=== PATIENT | female | born 1990 | race Caucasian/White ===

== ENCOUNTER 2017-01-07 08:37 | Emergency (ER) | payer OTHER ==
[~2017-01-07] VITALS: Ht 170.2 cm; Wt 85.2 kg
[2017-01-07 08:46] VITALS: TEMP 37.1; Ht 170.2 cm; Wt 85.2 kg
[2017-01-07 09:36] LABS: BASO % 0.5 %; BASO ABS # 0.05 K/uL (0-0.2); COMPLETE YES; HEMATOCRIT 35.8 % (37-47); IG% 0.4 %; LYMPH % 26.5 %; LYMPH ABS # 2.83 K/uL (1.2-3.4); MEAN CELL VOLUME 89.7 fL (80-100); MEAN CORPUSCULAR HEMOGLOBIN 31.8 pg (25-34); MEAN CORPUSCULAR HGB CONC 35.5 g/dl (32-36); MEAN PLATELET VOLUME 9.9 fL (7.4-10.4); MONO % 4.8 %; NEUT % 66.8 %; PLATELET COUNT 218 K/uL (130-400); RED BLOOD COUNT 3.99 M/uL (4.2-5.4); WHITE BLOOD COUNT 10.69 K/uL (4.8-10.8)
[2017-01-07 09:53] LABS: CREATININE 0.74 mg/dl (0.60-1.20); POTASSIUM 3.9 mmol/L (3.5-5.1)
--- NOTE | 2017-01-07 10:03 | DIAGNOSTIC IMAGING REPORT ---
RIGHT ELBOW MIN 3 VIEWS ROUTINE CLINICAL HISTORY: Right elbow pain following injury. COMPARISON: None FINDINGS: Positioning on this exam was difficult due to pain. Therefore, the AP exam is suboptimal. There is a right elbow joint effusion. Note is made of an 8 mm bone fragment projecting over the coronoid process of the ulna. There may be a few additional tiny adjacent fracture fragments. No additional fractures are identified on since exam. IMPRESSION: 1. 8 mm fracture fragment projecting over the anterior aspect the proximal right ulna. This favors an acute mildly displaced comminuted coronoid process fracture. Less likely, this could reflect a proximal radial fracture. 2. Right elbow joint effusion. Electronically signed by: Александр Fulton M.D. 01/07/2017 10:01 AM Dictated Date/Time: 01/07/2017 9:56 AM
--- NOTE | 2017-01-07 10:04 | DIAGNOSTIC IMAGING REPORT ---
RIGHT WRIST 2 VIEW CLINICAL HISTORY: Right wrist pain following trauma. COMPARISON: Right wrist radiographs October 10, 2015. FINDINGS: Positioning on this exam was difficult. Note is made of a markedly comminuted, moderately displaced fracture of the distal metaphysis of the right radius with intra-articular extension. There is dorsal tilt of the distal component. Carpal bones are suboptimally assessed on this exam but grossly intact. IMPRESSION: Moderately displaced, markedly comminuted distal right radial metaphyseal fracture with intra-articular extension consistent with a Colles' fracture. Electronically signed by: Александр Fulton M.D. 01/07/2017 10:03 AM Dictated Date/Time: 01/07/2017 10:01 AM
[2017-01-07] MEDS ORDERED: ONDANSETRON INJ 2 MG/ML 2 ML VIAL IV STA (10:43)
[2017-01-07] MEDS ORDERED: MoRPHine SULFATE 4 MG/ML 1 ML CARP\\VIAL IV STA (10:43)
[2017-01-07] MEDS ORDERED: BUPIVACAINE 0.5 % 5 MG/1 ML MPF 30ML VIAL INFIL ONE (10:45)
[2017-01-07] MEDS ORDERED: XYLOCAINE 1%/SOD BICARB 20 ML VIAL INFIL ONE (10:45)
[2017-01-07] MEDS ORDERED: OXYC-57 PO (11:04)
[2017-01-07] MEDS ORDERED: MoRPHine SULFATE 2 MG/ML CARP ONE (11:17)
--- NOTE | 2017-01-07 11:51 | DIAGNOSTIC IMAGING REPORT ---
RIGHT WRIST 2 VIEW CLINICAL HISTORY: Post reduction. COMPARISON: Right wrist radiographs January 07, 2017 at 9:41 AM. FINDINGS: Fine detail is diminished due to overlying cast. However, alignment of the distal right radial fracture is significantly improved since exam of January 07, 2017. No additional abnormalities are identified. IMPRESSION: Significant improvement in alignment of the distal right radial fracture status post reduction. Electronically signed by: Александр Fulton M.D. 01/07/2017 11:50 AM Dictated Date/Time: 01/07/2017 11:49 AM
[2017-01-07 12:12] VITALS: BP 115/50; PULSE 68; O2SAT 96
[2017-01-07] MEDS ORDERED: ONDANSETRON 4MG OD TAB ONE (12:19)
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
== END 2017-01-07 12:42 | disposition home or self-care (01) ==
LOC: C.EDB 08:40
DX: S52.531A Colles' fracture of right radius, initial encounter for closed fracture (principal); S52.041A Displaced fracture of coronoid process of right ulna, initial encounter for closed fracture; V86.59XA Driver of other special all-terrain or other off-road motor vehicle injured in nontraffic accident, initial encounter; Y92.89 Other specified places as the place of occurrence of the external cause; F41.9 Anxiety disorder, unspecified; J45.909 Unspecified asthma, uncomplicated

== ENCOUNTER 2017-01-09 12:52 | Emergency (ER) | payer OTHER ==
[~2017-01-09] VITALS: Ht 170.2 cm; Wt 87.7 kg
[~2017-01-09 12:52] MED LIST: OXYC-57 PO
[2017-01-09 13:03] VITALS: TEMP 36.9; Ht 170.2 cm; Wt 87.7 kg
[2017-01-09] MEDS ORDERED: MoRPHine SULFATE 10 MG/ML CARP/VIAL IM STA (13:37)
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
--- NOTE | 2017-01-09 14:43 | EMERGENCY ROOM VISIT NOTE ---
ED Visit Note First contact with patient: 13:18 CHIEF COMPLAINT: Arm pain HISTORY OF PRESENT ILLNESS: This 26-year-old female patient presents to the emergency department with her friend complaining of pain in the right wrist and elbow that has gotten worse today. Patient was seen here 2 days ago and found to have a fracture of the distal radius and ulna, as well as a small fracture in the elbow. She was seen by orthopedics and placed in a plaster splint. Patient states that her pain and swelling in her arm have gotten worse today, states "its excruciating, I can't take it anymore.". The patient rates their pain as throbbing and 8/10. The patient has taken Percocet for relief of the pain, last dose 2 tablets at 8 AM. The patient has not had previous fractures to this arm. The patient states she has a feeling of her fingers being asleep that has been present since her injury on Monday and has not gotten worse. The patient denies any other injuries. REVIEW OF SYSTEMS: A 6 system review of systems was completed with positives and pertinent negatives listed in the HPI. ALLERGIES: See chart MEDICATIONS: See chart PMH: See chart SOCIAL HISTORY: See chart PHYSICAL EXAM: Vital Signs: Reviewed Nurse's notes, vital signs stable. GENERAL : Pleasant and cooperative, slightly anxious but in no acute distress, well- developed, well-nourished. SKIN: The skin was without rashes, erythema, edema, warmth, or bruising. Capillary reflex less than 3 seconds. MUSCULOSKELETAL: The patient's right arm is in a sugar tong plaster splint. The fingers are moderately swollen but are pink, warm, with brisk cap refill, normal sensation. She is able to move her fingers but states this greatly increases her pain. The splint was loosened to further evaluate the arm, Radial pulse 2+. The anterior and posterior compartments are soft and nontender. NEURO: Patient was alert and oriented to person place and time. Normal sensation to light and sharp touch. EMERGENCY DEPARTMENT COURSE: I examined the patient. A repeat x-ray of the right forearm was reviewed myself and read by radiology and shows unchanged good alignment of the distal forearm fractures. I spoke on the phone with Dr. Morales, orthopedics, who recommended removal of splint to further evaluate the forearm. Pulses are intact, sensation is intact, brisk cap refill, and compartments are soft--I do not have any suspicion for compartment syndrome at this time. Patient had significant relief of pain with loosening of the splint , I suspect her increased pain was related to increased swelling of her forearm causing pressure within tight splint. The patient was placed in a new Ortho- Glass sugar tong splint under my direction and the position was satisfactory. She was given an arm sling for comfort. Neurovascular status was rechecked and intact. She was instructed to keep her ortho appointment tomorrow morning with Dr. Morales. The patient was discharged home in stable condition. Problem List Medical Problems: (1) Asthma, Unspecified Status: Chronic (2) Concussion W/O Coma Status: Resolved Current/Historical Medications Scheduled PRN Oxycodone/Acetaminophen 5MG/325MG (Percocet 5MG/325MG), 1-2 TABS PO Q4 PRN for Pain Allergies Coded Allergies: NUTS (Unverified Allergy, Severe, THROAT SWELLING, 01/09/17) BEE STING (Verified Allergy, Unknown, hives, 01/09/17) Vital Signs Date Time Temp Pulse Resp B/P (MAP) Pulse Ox O2 Delivery O2 Flow Rate FiO2 01/09/17 17:12 74 20 125/46 98 Room Air 01/09/17 15:12 61 14 97/38 96 Room Air 01/09/17 13:03 36.9 77 18 118/73 98 Room Air Medications Administered Medications (Trade) Dose Ordered Sig/Noah Route Start Time Stop Time Status Last Admin Dose Admin Morphine Sulfate (MoRPHine SULFATE INJ) 8 mg NOW STAT IM 01/09/17 13:37 01/09/17 13:40 DC 01/09/17 13:48 8 MG Oxycodone/ Acetaminophen (Percocet 5-325mg Tab) 2 tab NOW STAT PO 01/09/17 16:46 01/09/17 16:48 DC 01/09/17 16:51 2 TAB Departure Information Impression Primary Impression: Arm pain, right Additional Impression: Fracture of distal forearm Dispostion Home / Self-Care Condition GOOD Referrals No Doctor, Assigned (PCP) Patient Instructions ED Fx Upper Ext, My [facility] Additional Instructions You are scheduled to see Dr. Morales, orthopedics, at 10:15 AM. Please keep this appointment. Do not get the splint wet. Keep the splint in place and wear the sling for comfort. You may continue to take the Percocet as prescribed 1-2 tablets every 4-6 hours as needed for pain. Take this medication with food to help prevent stomach upset. This is a narcotic, you may not drive or drink alcohol while you're taking it. You may also take ibuprofen 600 mg every 6-8 hours as needed for pain. You may continue to apply ice over the cast to help with swelling. Keep the arm elevated as much as possible to help reduce swelling. Please return to the emergency department for severe pain that is not treated with medications, or if your fingers become numb, discolored, or cold. Problem Qualifiers Additional Impression: Fracture of distal forearm Encounter type: subsequent encounter Fracture type: closed Laterality: right Fracture healing: with routine healing Qualified Codes: S52.91XD - Unspecified fracture of right forearm, subsequent encounter for closed fracture with routine healing
[2017-01-09] MEDS ORDERED: OXYCODONE/ACETAMINOPHEN 5-325 TAB PO STA (16:46)
[2017-01-09 17:12] VITALS: BP 125/46; PULSE 74; O2SAT 98
== END 2017-01-09 17:14 | disposition home or self-care (01) ==
LOC: C.EDB 12:53 → C.EDD 17:14
DX: M79.601 Pain in right arm (principal); S52.91XD Unspecified fracture of right forearm, subsequent encounter for closed fracture with routine healing; X58.XXXD Exposure to other specified factors, subsequent encounter; J45.909 Unspecified asthma, uncomplicated

== ENCOUNTER 2018-01-08 22:19 | Emergency (ER) | payer OTHER ==
[~2018-01-08] VITALS: Ht 170.2 cm; Wt 90.4 kg
[2018-01-08 22:27] VITALS: TEMP 37; Ht 170.2 cm; Wt 90.4 kg
[2018-01-08 23:13] LABS: BASO % 0.6 %; BASO ABS # 0.05 K/uL (0-0.2); EOS % 2.8 %; EOS ABS # 0.25 K/uL (0-0.5); HEMATOCRIT 34.9 % (37-47); HEMOGLOBIN 11.8 g/dL (12.0-16.0); IG# 0.01 K/uL (0.00-0.02); LYMPH ABS # 2.79 K/uL (1.2-3.4); MEAN CELL VOLUME 90.2 fL (80-100); MEAN CORPUSCULAR HEMOGLOBIN 30.5 pg (25-34); MEAN CORPUSCULAR HGB CONC 33.8 g/dl (32-36); MEAN PLATELET VOLUME 10.2 fL (7.4-10.4); MONO % 7.4 %; MONO ABS # 0.67 K/uL (0.11-0.59); NEUT % 58.1 %; NEUT ABS # 5.24 K/uL (1.4-6.5); PLATELET COUNT 235 K/uL (130-400); RED CELL DISTRIBUTION WIDTH CV 12.4 % (11.5-14.5); RED CELL DISTRIBUTION WIDTH SD 40.6 fL (36.4-46.3); WHITE BLOOD COUNT 9.01 K/uL (4.8-10.8)
[2018-01-08 23:36] LABS: ALBUMIN 3.8 gm/dl (3.4-5.0); ALKALINE PHOSPHATASE 53 U/L (45-117); ALT/SGPT 23 U/L (12-78); AST/SGOT 13 U/L (15-37); BLOOD UREA NITROGEN 15 mg/dl (7-18); CALCIUM 8.6 mg/dl (8.5-10.1); CARBON DIOXIDE 24 mmol/L (21-32); CREATININE 0.96 mg/dl (0.60-1.20); GLUCOSE 92 mg/dl (70-99); LIPASE 140 U/L (73-393); POTASSIUM 3.8 mmol/L (3.5-5.1); SODIUM 140 mmol/L (136-145); TOTAL PROTEIN 7.1 gm/dl (6.4-8.2)
[2018-01-08] MEDS ORDERED: KETOROLAC TROMETHAMINE 30 MG/ML VIAL IV STA (23:49)
--- NOTE | 2018-01-09 00:07 | EMERGENCY ROOM VISIT NOTE ---
History Report prepared by Suha: Jessica Elkins Under the Supervision of: Dr. Dharmesh Cash M.D. First contact with patient: 22:41 Chief Complaint: ABDOMINAL PAIN Stated Complaint: STOMACH PAIN,CRAMPS History of Present Illness The patient is a 27 year old female who presents to the Emergency Room with complaints of worsening abdominal pain starting yesterday. The patient states that the pain feels like abdominal cramping that is worse than when she has her period, but notes that she doesn't have her period. She states that it is in her lower abdomen. The patient states that she still tried to work with the pain , but by this evening was doubled over from it. She notes that she had spotting this morning, but notes that she has never had this happen. The patient notes that a year ago she had an abnormal pap smear, but was fine when she went back for recheck. She states that they are still concerned for cervical cancer and have been following her closely. She notes that she is unsure if she could be because she had sex two weeks ago, but got her period the day after. The patient denies fever, chills, nausea, vomiting, anything making it better/ worse, vaginal discharge, pain with intercourse, burning with urination, hematuria, diarrhea, constipation, hematochezia, and any abdominal surgeries. Source of History: patient, parent Onset: yesterday Position: abdomen Quality: cramping Timing: worsening Associated Symptoms: No fevers, No chills, No nausea, No vomiting, No hematochezia, No diarrhea, No urinary symptoms Note: The patient complains of spotting. The patient denies anything making it better/ worse, vaginal discharge, pain with intercourse, constipation, and any abdominal surgeries. Review of Systems See HPI for pertinent positives & negatives. A total of 10 systems reviewed and were otherwise negative. Past Medical & Surgical Medical Problems: (1) Asthma, Unspecified (2) Concussion W/O Coma Surgical Problems: (1) History of surgery on arm Old medical records were reviewed. Nurse's notes were reviewed and I agree with. Family History No significant family history Social History Smoking Status: Current Every Day Smoker Alcohol Use: occasionally Drug Use: none Marital Status: single Housing Status: lives with family Occupation Status: employed Current/Historical Medications No Active Prescriptions or Reported Meds Allergies Coded Allergies: NUTS (Unverified Allergy, Severe, THROAT SWELLING, 8/21/18) BEE STING (Verified Allergy, Unknown, hives, 01/09/18) Physical Exam Vital Signs Date Time Temp Pulse Resp B/P (MAP) Pulse Ox O2 Delivery O2 Flow Rate FiO2 01/09/18 02:10 70 20 118/70 98 01/09/18 01:37 58 20 126/49 98 Room Air 01/08/18 23:56 55 20 132/75 98 Room Air 01/08/18 22:27 37.0 75 16 126/78 100 Room Air Physical Exam General: Non-ill appearing young female in no acute distress. HEENT: Normal cephalic atraumatic. Pupils are equal round and reactive to light. Extraocular movements are intact. Oropharynx is pink with moist mucous membranes. No swelling of the mouth lips or tongue. Neck: Supple with a midline trachea. No meningeal signs or stiffness, no JVD or bruits. No Stridor. Chest: Clear to auscultation bilaterally. No wheezes or rhonchi. No increased work of breathing. Heart: regular rate and rhythm. Abdomen: Mildly tender in the lower abdomen, mostly on the left. Soft, nondistended without rebound guarding or rigidity. Extremities: No cyanosis clubbing or edema. No calf tenderness or assymetry Spine/Back. Non tender to palpation. No CVA tenderness Skin: Good turgor without rashes. Neurologic exam: Cranial nerves two through 12 are intact. Motor and sensation are intact and symmetrical throughout. Medical Decision & Procedures ER Provider Diagnostic Interpretation: Radiology results as stated below per my review and radiologist interpretation: US PELVIC/ENDOVAG: The uterus is normal in size. The endometrium is normal in thickness measuring 6.7 mm. The ovaries are normal in size and in appearance with incidental nondominant follicles. Internal vascular flow is noted bilaterally. There is trace free fluid in the pelvic cul-de-sac which is non specific and may be considered physiologic in patients of this age group. Radiologist: Boby Hernández MD Study ready at 01:13 and initial results transmitted at 01:54. Laboratory Results 01/08/18 23:03 Red Blood Count 3.87, Mean Corpuscular Volume 90.2, Mean Corpuscular Hemoglobin 30.5, Mean Corpuscular Hemoglobin Concent 33.8, Mean Platelet Volume 10.2, Neutrophils (%) (Auto) 58.1, Lymphocytes (%) (Auto) 31.0, Monocytes (%) (Auto) 7.4, Eosinophils (%) (Auto) 2.8, Basophils (%) (Auto) 0.6, Neutrophils # (Auto) 5.24, Lymphocytes # (Auto) 2.79, Monocytes # (Auto) 0.67, Eosinophils # (Auto) 0.25, Basophils # (Auto) 0.05 01/08/18 23:03 Test 01/08/18 23:03 White Blood Count 9.01 K/uL (4.8-10.8) Red Blood Count 3.87 M/uL (4.2-5.4) Hemoglobin 11.8 g/dL (12.0-16.0) Hematocrit 34.9 % (37-47) Mean Corpuscular Volume 90.2 fL (80-100) Mean Corpuscular Hemoglobin 30.5 pg (25-34) Mean Corpuscular Hemoglobin Concent 33.8 g/dl (32-36) Platelet Count 235 K/uL (130-400) Mean Platelet Volume 10.2 fL (7.4-10.4) Neutrophils (%) (Auto) 58.1 % Lymphocytes (%) (Auto) 31.0 % Monocytes (%) (Auto) 7.4 % Eosinophils (%) (Auto) 2.8 % Basophils (%) (Auto) 0.6 % Neutrophils # (Auto) 5.24 K/uL (1.4-6.5) Lymphocytes # (Auto) 2.79 K/uL (1.2-3.4) Monocytes # (Auto) 0.67 K/uL (0.11-0.59) Eosinophils # (Auto) 0.25 K/uL (0-0.5) Basophils # (Auto) 0.05 K/uL (0-0.2) RDW Standard Deviation 40.6 fL (36.4-46.3) RDW Coefficient of Variation 12.4 % (11.5-14.5) Immature Granulocyte % (Auto) 0.1 % Immature Granulocyte # (Auto) 0.01 K/uL (0.00-0.02) Urine Color YELLOW Urine Appearance CLEAR (CLEAR) Urine pH 5.0 (4.5-7.5) Urine Specific [place] 1.026 (1.000-1.030) Urine Protein NEG (NEG) Urine Glucose (UA) NEG (NEG) Urine Ketones NEG (NEG) Urine Occult Blood NEG (NEG) Urine Nitrite NEG (NEG) Urine Bilirubin NEG (NEG) Urine Urobilinogen NEG (NEG) Urine Leukocyte Esterase TRACE (NEG) Urine WBC (Auto) 1-5 /hpf (0-5) Urine RBC (Auto) 0-4 /hpf (0-4) Urine Hyaline Casts (Auto) 1-5 /lpf (0-5) Urine Epithelial Cells (Auto) 10-20 /lpf (0-5) Urine Bacteria (Auto) NEG (NEG) Anion Gap 10.0 mmol/L (3-11) Est Creatinine Clear Calc Drug Dose 102.5 ml/min Estimated GFR () 94.6 Estimated GFR (Non- 81.6 BUN/Creatinine Ratio 15.3 (10-20) Calcium Level 8.6 mg/dl (8.5-10.1) Total Bilirubin 0.2 mg/dl (0.2-1) Direct Bilirubin < 0.1 mg/dl (0-0.2) Aspartate Amino Transf (AST/SGOT) 13 U/L (15-37) Alanine Aminotransferase (ALT/SGPT) 23 U/L (12-78) Alkaline Phosphatase 53 U/L (45-117) Total Protein 7.1 gm/dl (6.4-8.2) Albumin 3.8 gm/dl (3.4-5.0) Lipase 140 U/L (73-393) Human Chorionic Gonadotropin, Qual NEG (NEG) Laboratory studies as stated above per my review. Medications Administered Medications (Trade) Dose Ordered Sig/Noah Route Start Time Stop Time Status Last Admin Dose Admin Ketorolac Tromethamine (Toradol Inj) 30 mg NOW STAT IV 01/08/18 23:49 01/08/18 23:51 DC 01/08/18 23:55 30 MG ED Course 2241: Past medical records reviewed. The patient was evaluated in room B3B, and a complete history and physical examination were performed. 2345: I reevaluated the patient and she appears comfortable. I ordered a pelvic ultrasound and Toradol since the pain is mainly in the LLQ and she had some bleeding today. 2349: Ordered Toradol Inj 30 mg IV. 0036: I reevaluated the patient and she is currently at ultrasound. 0130: I reevaluated the patient and she is resting comfortably. 0203: Upon reevaluation, the patient is feeling better. I discussed the results and treatment plan with her. She verbalized agreement of the treatment plan. The patient was discharged home. Medical Decision Differential diagnoses include , ovarian cyst, UTI, infection, electrolyte or metabolic abnormality. This patient comes in as described above. she has had lower abdominal mostly on the left. she has had some abnormal vaginal bleeding today with a little spotting. She has had no vaginal discharge or any dyspareunia or anything to suggest a pelvic infection. She has had no fever. IV access established was given IV Toradol. She has no white count or fever to suggest infection. she has no significant electrolyte or metabolic abnormalities. She is nothing to suggest kidney or liver disease. Her urinalysis does not suggest a definite UTI. Her serum test was negative. She did have a pelvic ultrasound. The pelvic ultrasound was unremarkable she is feeling significantly better. At this point I do not think is diverticulitis or appendicitis it may be related to more of a gynecologic issue. She declines a pelvic exam and rather follow-up with her regular doctor think that thus is reasonable. at this point, I do not suspect PID. She will use ibuprofen for pain return if: increasing pain, worsening of symptoms, fever or chills, any problems or concerns. She is happy to plan to discharge to home. Medication Reconcilliation Current Medication List: was personally reviewed by me Blood Pressure Screening Patient's blood pressure: Normal blood pressure Blood pressure disposition: Did not require urgent referral Impression Primary Impression: LLQ abdominal pain Scribe Attestation The scribe's documentation has been prepared under my direction and personally reviewed by me in its entirety. I confirm that the note above accurately reflects all work, treatment, procedures, and medical decision making performed by me. Departure Information Dispostion Home / Self-Care Prescriptions No Active Prescriptions or Reported Meds Referrals No Doctor, Assigned (PCP) Forms HOME CARE DOCUMENTATION FORM, IMPORTANT VISIT INFORMATION Patient Instructions [facility] Additional Instructions Rest Use ibuprofen 400 mg every 6 hours, take with food Return if increasing pain or bleeding, worsening symptoms, fever or chills, any new problems or concerns Up with your doctor/soil and plant scientist this week for recheck. you may need further pelvic exam if your symptoms persist or worsen
[2018-01-09 02:10] VITALS: BP 118/70; PULSE 70; O2SAT 98
--- NOTE | 2018-01-09 06:48 | DIAGNOSTIC IMAGING REPORT ---
EXAMINATION: PELVIC ULTRASOUND (transabdominal and endovaginal scanning) CLINICAL HISTORY: Left-sided pelvic pain COMPARISON STUDY: None FINDINGS: The uterus measured 5.3 x 3.6 x 4.3 cm.. The endometrial stripe measured 7 mm. Incidental note is made of several nabothian gland cysts. The right ovary measured 44 x 21 x 31 mm.. The left ovary measured 35 x 26 x 25 mm.. There is no ultrasonographic evidence of ovarian torsion. It should be noted that ovarian torsion can be present with normal Doppler ultrasonographic findings. There is trace free fluid likely physiologic. IMPRESSION: Normal pelvic ultrasound Electronically signed by: Doyle Hills M.D. 01/09/2018 6:46 AM Dictated Date/Time: 01/09/2018 6:45 AM
== END 2018-01-09 02:11 | disposition home or self-care (01) ==
LOC: C.EDB 22:20
DX: R10.32 Left lower quadrant pain (principal); R10.9 Unspecified abdominal pain; J45.909 Unspecified asthma, uncomplicated; Z91.018 Allergy to other foods; Z91.030 Bee allergy status; F17.200 Nicotine dependence, unspecified, uncomplicated

== ENCOUNTER 2021-10-11 07:41 | Inpatient (IN) ==
[2021-10-11] MEDS ORDERED: OXYTOCIN 30 UNITS/500 ML BAG IV PRN ×2 (07:46→07:48)
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
[2021-10-11] MEDS: LACTATED RINGER'S 1,000 ML IV PRN ×3 (08:48→17:45)
[2021-10-11 09:11] LABS: Hematocrit (blood only) 29.4 % (37-47); Hemoglobin 9.4 g/dL (12.0-16.0); Mean Corpuscular Hemoglobin 26.9 pg (25-34); Mean Corpuscular Volume 84.2 fL (80-100); Mean Platelet Volume 10.6 fL (7.4-10.4); Platelet Count 225 K/uL (130-400); RDW Coefficient of Variation 14.2 % (11.5-14.5); RDW Standard Deviation 42.7 fL (36.4-46.3); Red Blood Count 3.49 M/uL (4.2-5.4); White Blood Count 8.83 K/uL (4.8-10.8)
[2021-10-11] MEDS ORDERED: SODIUM CHLORIDE 0.9% 250 ML IV PRN (12:48)
[2021-10-11] MEDS ORDERED: SODIUM CHLORIDE 0.9% INJ 10 ML VIAL ONE ×2 (13:41→22:29)
[2021-10-11] MEDS ORDERED: fentaNYL citrate 100 MCG/2 ML VIAL ONE ×3 (13:41→23:53)
[2021-10-11] MEDS ORDERED: ePHEDrine sulfate 50 MG/ML AMP ONE (13:41)
[2021-10-11] MEDS ORDERED: BUPIVACAINE 0.25% 30 ML VIAL ONE ×2 (13:41→22:29)
[2021-10-11] MEDS ORDERED: fentaNYL 2MCG/ML ROPIVACAINE 1.25MG/ML 100 ML BAG EPI ONE (13:42)
[2021-10-11] MEDS ORDERED: fentaNYL 2MCG/ML ROPIVACAINE 1.25MG/ML 100 ML BAG EPI PRN (14:14)
[2021-10-11] MEDS ORDERED: ePHEDrine sulfate 50 MG/ML AMP IV PRN (14:14)
[2021-10-11] MEDS ORDERED: NALOXONE HCL 1 MG in SODIUM CHLORIDE 0.9% 1000ML 1,000 ML IV PRN (14:14)
[2021-10-11] MEDS ORDERED: diphenhydrAMINE 50 MG/ML VIAL IV PRN (14:14)
[2021-10-11] MEDS ORDERED: NALOXONE HCL 0.4 MG/1 ML VIAL/CARP IV PRN (14:14)
[2021-10-11] MEDS ORDERED: NALBUPHINE HCL INJ 10 MG/ML AMP IV PRN (14:14)
[2021-10-11] MEDS ORDERED: ONDANSETRON INJ 2 MG/ML 2 ML VIAL IV PRN (14:14)
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
--- NOTE | 2021-10-11 16:23 | Labor Progress Brief Note ---
Date of Service October 11, 2021 Subjective Comfortable with epidural. Assessment & Plan (1) Encounter for induction of labor: Plan: IOL at 39w5d weeks with suspected LGA infant, despite passed GTT / non-diabetic. Discussion held in office regarding option for 1'CS given estimated weight that could be >5Kg with margin of error. Patient desired attempt at vaginal delivery. She reaffirmed that desire this morning in discussions with covering MD and resident prior to her Hammonds placement and initiation of pitocin. Has now progressed well with hammonds/Pitocin, has epidural, and agreeable to AROM which was performed without complication. Copious clear fluid released. Continue current management. Admission and Anticipated Discharge Date Admission Date: October 11, 2021 Physical Exam Genitourinary: /- AROM copious clear fluid FSE applied as fetus has been somewhat difficult to trace, especially after any maternal repositioning. [place] Q2-3 Pit @ 9 FHT Cat 1 [facility] & Data ([facility]) Vital Signs (Past 12 Hours) Vital Signs Temp Pulse Resp BP Pulse Ox 10/11/21 16:11 60 108/56 L 98 10/11/21 16:06 62 98 10/11/21 16:01 70 98 10/11/21 15:57 71 127/57 L 10/11/21 15:56 72 100 10/11/21 15:51 68 98 10/11/21 15:46 64 96 10/11/21 15:42 61 122/67 10/11/21 15:41 62 98 10/11/21 15:36 71 98 10/11/21 15:31 70 99 10/11/21 15:27 63 121/58 L 10/11/21 15:26 64 98 10/11/21 15:21 62 98 10/11/21 15:16 65 122/57 L 99 10/11/21 15:11 66 98 10/11/21 15:09 63 123/59 L 10/11/21 15:07 64 124/59 L 10/11/21 15:06 67 98 10/11/21 15:05 68 120/58 L 10/11/21 15:03 69 120/59 L 10/11/21 15:01 68 121/66 98 10/11/21 15:00 65 124/75 10/11/21 14:57 79 132/63 10/11/21 14:56 72 99 10/11/21 14:55 64 124/60 10/11/21 14:53 73 123/63 10/11/21 14:51 71 117/65 99 10/11/21 14:49 65 120/78 10/11/21 14:46 67 99 10/11/21 14:45 64 141/63 H 10/11/21 14:41 70 100 10/11/21 14:36 78 100 10/11/21 14:31 75 100 10/11/21 14:30 98.4 F 20 10/11/21 14:26 79 100 10/11/21 14:21 69 100 10/11/21 14:16 71 100 10/11/21 14:03 71 133/70 10/11/21 13:04 70 132/71 10/11/21 12:05 59 L 97/46 L 10/11/21 11:30 98.4 F 18 10/11/21 11:11 57 L 118/62 10/11/21 10:04 60 127/67 10/11/21 09:03 71 112/63 10/11/21 08:15 98.4 F 20 10/11/21 08:05 92 H 119/71 Coding Level of Care Code None Diagnoses Encounter for induction of labor Z34.90
[2021-10-11] MEDS ORDERED: NURSING L&D Epidural Breakthrough Pain Update ONE (18:44)
--- NOTE | 2021-10-11 19:02 | Labor Progress Brief Note ---
Date of Service October 11, 2021 Subjective Comfortable with epidural. Assessment & Plan (1) Encounter for induction of labor: Plan: Patient counseled by this MD specifically on weight, option of CSec vs continued IOL, and the lack of progress between exams. She is very anxious about and continues to want to induce labor and to try hard to avoid a . Discussed some of her fears and addressed them as best I can, and reviewed the shared decision-making that we will need to use over the coming hours in order to make good choices about her best route of delivery. Reviewed the use of IUPC, goal MVUs, the possibility that we will learn we can safely use more pitocin to create an adequate labor pattern, and the possibility we will learn that an objectively adequate trial of labor is not resulting in delivery, as well as the ways that these findings will need to be used to guide our decisions going forward for the best outcome. Patient and FOB's questions answered. At this time status is reassuring, fluid is clear, maternal vitals are stable, pain control is adequate, and there appears to be room to increase pitocin to titrate to goal MVU. Admission and Anticipated Discharge Date Admission Date: October 11, 2021 Physical Exam Genitourinary: Cervix unchanged, /-2 [place] was Q2, but more recently has changed to a dysfunctional pattern with coupleting and grouping of contractions followed by 5-6min breaks. Pit @ 11 T Cat 1 Patient and FOB counseled on IUPC use, risks and benefits, and consent to placement. This was performed without difficulty, being introduced at around 6- 7 o'clock position and meeting no resistance, tube filling with clear amniotic fluid upon placement. Initial MVU appeared to be ~40 per contraction. Goal 200-250mvu discussed in room. Results & Data ([facility]) Vital Signs (Past 12 Hours) Vital Signs Temp Pulse Resp BP Pulse Ox 10/11/21 18:51 74 98 10/11/21 18:46 66 98 10/11/21 18:42 62 132/65 10/11/21 18:41 66 98 10/11/21 18:36 67 100 10/11/21 18:31 73 20 99 10/11/21 18:27 74 125/71 10/11/21 18:26 69 99 10/11/21 18:21 65 99 10/11/21 18:16 65 18 100 10/11/21 18:11 63 112/55 L 98 10/11/21 18:06 63 98 10/11/21 18:04 18 10/11/21 18:01 72 99 10/11/21 17:56 69 130/70 98 10/11/21 17:51 66 98 10/11/21 17:48 18 10/11/21 17:46 68 99 10/11/21 17:44 98.6 F 10/11/21 17:42 69 141/77 H 10/11/21 17:41 69 99 10/11/21 17:36 75 99 10/11/21 17:32 18 10/11/21 17:31 68 98 10/11/21 17:27 65 132/75 10/11/21 17:26 67 98 10/11/21 17:21 65 98 10/11/21 17:16 63 18 98 10/11/21 17:12 62 125/63 10/11/21 17:11 65 98 10/11/21 17:06 69 99 10/11/21 17:02 20 10/11/21 17:01 62 99 10/11/21 16:58 71 108/91 10/11/21 16:56 64 99 10/11/21 16:51 65 98 10/11/21 16:46 64 18 99 10/11/21 16:43 56 L 105/54 L 10/11/21 16:41 62 98 10/11/21 16:36 62 99 10/11/21 16:31 58 L 18 98 10/11/21 16:26 62 105/54 L 98 10/11/21 16:21 60 98 10/11/21 16:16 62 20 98 10/11/21 16:11 60 108/56 L 98 10/11/21 16:06 62 98 10/11/21 16:01 70 20 98 05 15:57 71 127/57 L 10/11/21 15:56 72 100 10/11/21 15:51 68 98 10/11/21 15:46 64 18 96 05 15:42 61 122/67 05 15:41 62 98 05 15:36 71 98 05 15:31 70 18 99 10/11/21 15:27 63 121/58 L 10/11/21 15:26 64 98 10/11/21 15:21 62 98 10/11/21 15:16 65 20 122/57 L 99 10/11/21 15:11 66 98 10/11/21 15:09 63 123/59 L 10/11/21 15:07 64 124/59 L 10/11/21 15:06 67 98 10/11/21 15:05 68 120/58 L 10/11/21 15:03 69 120/59 L 10/11/21 15:02 18 10/11/21 15:01 68 121/66 98 10/11/21 15:00 65 124/75 10/11/21 14:57 79 132/63 10/11/21 14:56 72 99 10/11/21 14:55 64 124/60 10/11/21 14:53 73 123/63 10/11/21 14:52 18 10/11/21 14:51 71 117/65 99 10/11/21 14:49 65 120/78 10/11/21 14:46 67 99 10/11/21 14:45 64 141/63 H 10/11/21 14:41 70 100 10/11/21 14:36 78 100 10/11/21 14:31 75 100 10/11/21 14:30 98.4 F 20 10/11/21 14:26 79 100 10/11/21 14:21 69 100 10/11/21 14:16 71 100 10/11/21 14:03 71 133/70 10/11/21 13:04 70 132/71 10/11/21 12:05 59 L 97/46 L 10/11/21 11:30 98.4 F 18 10/11/21 11:11 57 L 118/62 10/11/21 10:04 60 127/67 10/11/21 09:03 71 112/63 10/11/21 08:15 98.4 F 20 10/11/21 08:05 92 H 119/71 Coding Level of Care Code None Diagnoses Encounter for induction of labor Z34.90
--- NOTE | 2021-10-11 21:16 | Labor Progress Brief Note ---
Date of Service October 11, 2021 Subjective Comfortable with epidural Assessment & Plan (1) Encounter for induction of labor: Plan: Discussion at bedside with RN Judy, patient, and FOB. She remains very anxious about possibly having a . Discussed options: keep pitocin at the typical 21 maximum since some change did occur despite inadequate MVU, increase the limit to a higher amount like 31 in an attempt to reach adequate MVU, or change plans to . Patient remains not interested in unless necessary. Has many questions again about pain management in , management of anxiety in the event of , the process of surgical delivery, all answered to her stated satisfaction. Discussed pros and cons of increasing pitocin dose, including higher chance of progress in labor, as well as higher chance of uterine atony, potentially fluid overload, and potentially prolonging the attempted IOL when the eventual result could still be CPD. She elects to stay at 21mu/min for another 2 hour interval and having another cervix reassessment, no further increases at this time. Admission and Anticipated Discharge Date Admission Date: October 11, 2021 Physical Exam Genitourinary: MVU not adequate, has not been reaching 200, and pit has been at 19. Cvx 6/75/-2 LOF clear continues FSE/IUPC in place and working well Coupling noted at times. Ctx otherwise ranging Q2-4min. Pit raised to 21mu/min while I am in room. Results & Data ([facility]) Vital Signs (Past 12 Hours) Vital Signs Temp Pulse Resp BP Pulse Ox 10/11/21 21:06 71 99 10/11/21 21:01 76 100 10/11/21 20:57 65 129/66 10/11/21 20:56 66 99 10/11/21 20:51 83 99 10/11/21 20:46 79 99 10/11/21 20:42 63 123/59 L 10/11/21 20:41 65 98 10/11/21 20:36 63 98 10/11/21 20:31 73 98 10/11/21 20:26 65 126/64 98 10/11/21 20:21 68 98 10/11/21 20:16 73 99 10/11/21 20:11 72 122/60 97 10/11/21 20:06 71 98 10/11/21 20:01 75 98 10/11/21 19:56 68 128/61 97 05 19:51 64 98 05 19:46 64 97 05 19:42 66 123/63 05 19:41 73 98 05 19:36 76 99 05 19:31 79 129/69 98 05 19:26 68 98 05 19:21 68 99 05 19:16 66 131/64 99 05 19:11 70 137/74 100 05 19:06 78 98 05 19:01 60 99 05 18:56 70 128/60 98 05 18:51 74 98 05 18:46 66 20 98 05 18:42 62 132/65 05 18:41 66 98 05 18:36 67 100 05 18:31 73 20 99 05 18:27 74 125/71 05 18:26 69 99 05 18:21 65 99 05 18:16 65 18 100 05 18:11 63 112/55 L 98 10/11/21 18:06 63 98 05 18:04 18 10/11/21 18:01 72 99 05 17:56 69 130/70 98 10/11/21 17:51 66 98 05 17:48 18 10/11/21 17:46 68 99 05 17:44 98.6 F 10/11/21 17:42 69 141/77 H 05 17:41 69 99 05 17:36 75 99 05 17:32 18 10/11/21 17:31 68 98 05 17:27 65 132/75 05 17:26 67 98 05 17:21 65 98 05 17:16 63 18 98 05 17:12 62 125/63 05 17:11 65 98 05 17:06 69 99 05 17:02 20 05 17:01 62 99 05 16:58 71 108/91 05 16:56 64 99 10/11/21 16:51 65 98 10/11/21 16:46 64 18 99 10/11/21 16:43 56 L 105/54 L 10/11/21 16:41 62 98 10/11/21 16:36 62 99 10/11/21 16:31 58 L 18 98 10/11/21 16:26 62 105/54 L 98 10/11/21 16:21 60 98 10/11/21 16:16 62 20 98 10/11/21 16:11 60 108/56 L 98 10/11/21 16:06 62 98 10/11/21 16:01 70 20 98 10/11/21 15:57 71 127/57 L 10/11/21 15:56 72 100 10/11/21 15:51 68 98 10/11/21 15:46 64 18 96 10/11/21 15:42 61 122/67 10/11/21 15:41 62 98 10/11/21 15:36 71 98 10/11/21 15:31 70 18 99 10/11/21 15:27 63 121/58 L 10/11/21 15:26 64 98 10/11/21 15:21 62 98 10/11/21 15:16 65 20 122/57 L 99 10/11/21 15:11 66 98 10/11/21 15:09 63 123/59 L 10/11/21 15:07 64 124/59 L 10/11/21 15:06 67 98 10/11/21 15:05 68 120/58 L 10/11/21 15:03 69 120/59 L 10/11/21 15:02 18 10/11/21 15:01 68 121/66 98 10/11/21 15:00 65 124/75 10/11/21 14:57 79 132/63 10/11/21 14:56 72 99 10/11/21 14:55 64 124/60 05 14:53 73 123/63 05 14:52 18 10/11/21 14:51 71 117/65 99 10/11/21 14:49 65 120/78 10/11/21 14:46 67 99 10/11/21 14:45 64 141/63 H 10/11/21 14:41 70 100 10/11/21 14:36 78 100 10/11/21 14:31 75 100 10/11/21 14:30 98.4 F 20 10/11/21 14:26 79 100 10/11/21 14:21 69 100 10/11/21 14:16 71 100 10/11/21 14:03 71 133/70 10/11/21 13:04 70 132/71 10/11/21 12:05 59 L 97/46 L 10/11/21 11:30 98.4 F 18 10/11/21 11:11 57 L 118/62 10/11/21 10:04 60 127/67 Coding Level of Care Code None Diagnoses Encounter for induction of labor Z34.90
[2021-10-11] MEDS ORDERED: LACTATED RINGER'S 1,000 ML IV SCH (23:15)
--- NOTE | 2021-10-11 23:15 | Labor Progress Brief Note ---
Date of Service October 11, 2021 Subjective Feeling more pelvic bone pain with contractions despite anesthesiologist giving additional medication Assessment & Plan (1) Encounter for induction of labor: Plan: Discussed no cervical change in the last 2 hour interval. MVU ranging from suboptimal to adequate, with coupling frequently seen. Labial edema, pelvic pain and dysfunctional contraction pattern all suggest - but do not diagnose - possible CPD, especially in light of ultrasound measurements. Pelvis feels average and is unproven. Patient is again counseled on options and at this time is ready to proceed to , which I do recommend. Impact of on future pregnancies including scar implantation and risks a/w reviewed. Consent process completed with line by line review of consent form, signed by patient and FOB. Admission and Anticipated Discharge Date Admission Date: October 11, 2021 Physical Exam Genitourinary: Cervix unchanged from prior exam. Fetus never came down below -2 station. FSE/IUPC in place, FHT Cat 1, [place] Q2-4, MVU 160-200 Pit @ 21 Fluid remains clear. Labial edema beginning to be notable. Results & Data ([facility]) Vital Signs (Past 12 Hours) Vital Signs Temp Pulse Resp BP Pulse Ox 10/11/21 23:06 82 98 10/11/21 23:01 87 99 10/11/21 22:56 79 130/54 L 99 10/11/21 22:51 71 99 10/11/21 22:46 65 98 10/11/21 22:42 63 126/62 10/11/21 22:41 66 126/65 98 10/11/21 22:39 77 124/63 10/11/21 22:37 65 117/60 10/11/21 22:36 64 99 10/11/21 22:33 67 120/58 L 10/11/21 22:31 66 98 10/11/21 22:27 65 115/55 L 10/11/21 22:26 69 98 10/11/21 22:21 73 99 10/11/21 22:16 66 99 10/11/21 22:11 79 110/59 L 99 10/11/21 22:06 65 99 10/11/21 22:01 80 99 10/11/21 21:56 73 140/59 L 100 10/11/21 21:51 71 99 10/11/21 21:46 72 98 05/23/22 21:42 69 114/56 L 0522 21:41 73 99 0522 21:36 75 99 0522 21:31 109 H 100 0522 21:27 77 129/59 L 0522 21:26 87 99 0522 21:21 66 99 0522 21:16 67 99 0522 21:14 65 110/54 L 0522 21:11 72 99 0522 21:06 71 99 0522 21:01 76 100 0522 20:57 65 129/66 0522 20:56 66 99 0522 20:51 83 99 0522 20:50 99.1 F 16 05 20:46 79 99 0522 20:42 63 123/59 L 05 20:41 65 98 0522 20:36 63 98 05 20:31 73 98 0522 20:26 65 126/64 98 0522 20:21 68 98 05 20:16 73 99 0522 20:11 72 122/60 97 05 20:06 71 98 05 20:01 75 98 05 19:56 68 128/61 97 0522 19:51 64 98 0522 19:46 64 97 0522 19:42 66 123/63 0522 19:41 73 98 0522 19:36 76 99 0522 19:31 79 129/69 98 05/22 19:26 68 98 0522 19:21 68 99 0522 19:16 66 131/64 99 0522 19:11 70 137/74 100 05 19:06 78 98 05 19:01 60 99 05/22 18:56 70 128/60 98 05/22 18:51 74 98 05/23/22 18:46 66 20 98 0523/22 18:42 62 132/65 0523/22 18:41 66 98 052322 18:36 67 100 05//22 18:31 73 20 99 10/11/21 18:27 74 125/71 10/11/21 18:26 69 99 10/11/21 18:21 65 99 10/11/21 18:16 65 18 100 10/11/21 18:11 63 112/55 L 98 10/11/21 18:06 63 98 10/11/21 18:04 18 10/11/21 18:01 72 99 10/11/21 17:56 69 130/70 98 10/11/21 17:51 66 98 10/11/21 17:48 18 10/11/21 17:46 68 99 10/11/21 17:44 98.6 F 10/11/21 17:42 69 141/77 H 10/11/21 17:41 69 99 10/11/21 17:36 75 99 10/11/21 17:32 18 10/11/21 17:31 68 98 10/11/21 17:27 65 132/75 10/11/21 17:26 67 98 10/11/21 17:21 65 98 10/11/21 17:16 63 18 98 10/11/21 17:12 62 125/63 10/11/21 17:11 65 98 10/11/21 17:06 69 99 10/11/21 17:02 20 10/11/21 17:01 62 99 10/11/21 16:58 71 108/91 10/11/21 16:56 64 99 10/11/21 16:51 65 98 10/11/21 16:46 64 18 99 10/11/21 16:43 56 L 105/54 L 10/11/21 16:41 62 98 10/11/21 16:36 62 99 10/11/21 16:31 58 L 18 98 10/11/21 16:26 62 105/54 L 98 10/11/21 16:21 60 98 10/11/21 16:16 62 20 98 10/11/21 16:11 60 108/56 L 98 10/11/21 16:06 62 98 10/11/21 16:01 70 20 98 10/11/21 15:57 71 127/57 L 10/11/21 15:56 72 100 10/11/21 15:51 68 98 10/11/21 15:46 64 18 96 0522 15:42 61 122/67 10/11/21 15:41 62 98 10/11/21 15:36 71 98 10/11/21 15:31 70 18 99 10/11/21 15:27 63 121/58 L 10/11/21 15:26 64 98 10/11/21 15:21 62 98 10/11/21 15:16 65 20 122/57 L 99 10/11/21 15:11 66 98 10/11/21 15:09 63 123/59 L 10/11/21 15:07 64 124/59 L 10/11/21 15:06 67 98 10/11/21 15:05 68 120/58 L 10/11/21 15:03 69 120/59 L 10/11/21 15:02 18 10/11/21 15:01 68 121/66 98 10/11/21 15:00 65 124/75 10/11/21 14:57 79 132/63 10/11/21 14:56 72 99 10/11/21 14:55 64 124/60 10/11/21 14:53 73 123/63 10/11/21 14:52 18 10/11/21 14:51 71 117/65 99 10/11/21 14:49 65 120/78 10/11/21 14:46 67 99 10/11/21 14:45 64 141/63 H 10/11/21 14:41 70 100 10/11/21 14:36 78 100 10/11/21 14:31 75 100 10/11/21 14:30 98.4 F 20 10/11/21 14:26 79 100 10/11/21 14:21 69 100 10/11/21 14:16 71 100 10/11/21 14:03 71 133/70 10/11/21 13:04 70 132/71 10/11/21 12:05 59 L 97/46 L 10/11/21 11:30 98.4 F 18 10/11/21 11:11 57 L 118/62 Coding Level of Care Code None Diagnoses Encounter for induction of labor Z34.90
[2021-10-11] MEDS ORDERED: CITRIC ACID/SODIUM CITRATE 15 ML UDC ONE (23:18)
[2021-10-11] MEDS ORDERED: CITRIC ACID/SODIUM CITRATE 15 ML UDC PO SCH (23:30)
[2021-10-11] MEDS ORDERED: LIDOCAINE 2%/EPINEPHRINE 1:200,000 20 ML SDV ONE (23:34)
[2021-10-11] MEDS ORDERED: OXYTOCIN 10 UNITS/ML 10ML VIAL ONE (23:34)
[2021-10-11] MEDS ORDERED: MIDAZOLAM HCL 1 MG/ML 2ML VIAL ONE (23:52)
[2021-10-12] MEDS ORDERED: SUCCINYLCHOLINE CHLORIDE 20 MG/ML 10 ML VIAL IV ONE (00:18)
[2021-10-12] MEDS ORDERED: ONDANSETRON INJ 2 MG/ML 2 ML VIAL ONE (00:18)
[2021-10-12] MEDS ORDERED: PROPOFOL IV EMULSION 10 MG/ML 20 ML VIAL IV ONE (00:18)
[2021-10-12] MEDS ORDERED: PHENYLEPHRINE 100MCG/ML 5ML SYR ONE (00:21)
[2021-10-12] MEDS ORDERED: MoRPHine SULFATE PF 1 MG/ML 10 ML AMP/VIAL ONE (00:22)
[2021-10-12] MEDS ORDERED: NALOXONE HCL 0.4 MG/1 ML VIAL/CARP IV PRN (00:26)
[2021-10-12] MEDS ORDERED: LACTATED RINGER'S 500 ML IV PRN (00:26)
[2021-10-12] MEDS ORDERED: KETOROLAC 30 MG/ML VIAL IV PRN ×2 (00:26→18:26)
[2021-10-12] MEDS ORDERED: MoRPHine SULFATE PF 1 MG/ML 10 ML AMP/VIAL INT SPINAL ONE (00:26)
[2021-10-12] MEDS ORDERED: NALOXONE HCL 1 MG in SODIUM CHLORIDE 0.9% 1000ML 1,000 ML IV PRN (00:26)
[2021-10-12] MEDS ORDERED: NALOXONE HCL 0.08 MG in SYRINGE 1.8 ML IV PRN (00:26)
[2021-10-12] MEDS ORDERED: ePHEDrine sulfate 50 MG/ML AMP IV PRN (00:26)
[2021-10-12] MEDS ORDERED: MEPERIDINE HCL 25 MG/ML CARP/VIAL IV PRN (00:26)
[2021-10-12] MEDS ORDERED: NALBUPHINE HCL INJ 10 MG/ML AMP IV PRN (00:26)
[2021-10-12] MEDS ORDERED: diphenhydrAMINE 50 MG/ML VIAL IV PRN ×2 (00:26→18:26)
[2021-10-12] MEDS ORDERED: SODIUM CHLORIDE 0.9% 1000ML 1,000 ML IV SCH (00:30)
[2021-10-12] MEDS ORDERED: NO NARCOTICS OR SEDATIVES SCH (00:30)
[2021-10-12] MEDS ORDERED: DC INTRASPINAL MORPHINE SCH (00:30)
--- NOTE | 2021-10-12 00:44 | Operative Report ---
PG Post Operative Report Pre & Post Diagnosis Operation Date: 10/11/21 23:30 Pre-Op Diagnosis: 1. Macrosomnia 2. Suspected cephalopelvic disproportion 3. Failure to progress in labor Post-Op Diagnosis: Same, with delivery of viable 9lb 10oz female child I identified the patient and participated in the time-out.: Yes Procedure Operation Date: 10/11/21 23:30 Actual Procedures Primary Low Transverse Section with Two-Layer uterine closure Surgeon Stephania Smith MD Operational Communication Chief Kan Correia RN Estimated Blood Loss 600 Findings Consistent with Post-Op Diagnosis Specimens Cord blood, Placenta for exam Anesthesia Type General Complications none Disposition Accompanied Patient To Recovery: Yes Disposition: L&D Description of Procedure The patient was placed operating table in the supine position with a leftward tilt. She was prepped and draped in standard sterile fashion. The anesthetic was tested and found to be adequate. A time-out was held, identifying correct patient, procedure, positioning and preoperative antibiotics. There were no concerns. A Pfannenstiel skin incision was made with a knife and taken down to the underlying layer of fascia. During this process, after opening only the skin and the first 1cm of subcutaneous fat tissue, the patient did complain of feeling sharp pain. She had severe anxiety pre-operatively, and had continued to express anxiety and have hyperventilation episodes during the preparation for surgery. Due to this anxiety as well as her complaints that she could feel pain once we announced that surgery had begun, the decision was made to convert to general endotracheal anesthesia. The FOB was escorted from the OR and the patient was induced and intubated. Dissection was then completed rapidly down to the fascia. The fascia was incised in the midline with the knife and taken out laterally with scissors. The fascia was bluntly tugged both superiorly and inferiorly. The muscles were bluntly in the midline. The peritoneum was entered bluntly. The incision was then stretched. An extra-large Rafael retractor was placed. The vesicouterine peritoneum was identified, entered with scissors and taken out laterally with scissors. The bladder flap was created digitally. A hysterotomy incision was created transversely in the lower uterine segment, final entry being accomplished in a blunt manner with the cover making machine operator's fingers. Clear amniotic fluid was encountered. The cover making machine operator's hand was used to elevate the head to the hysterotomy. The head was delivered using mild fundal pressure. As the head was quite large, a Kiwi was also applied with suction just into the "green zone" to help deliver the head. With additional fundal pressure and some rotation of the infant's body as it passed through the orifice of the Rafael, the shoulders and body followed. The cord was clamped and cut and the was then handed off to the awaiting mail carriers supervisor. Cord blood was obtained. The placenta was Manually extracted. The uterus was left in the abdomen and cleared of all clot and debris with moistened laparotomy sponges. The hysterotomy incision was repaired in two layers, the first in a running locked layer, the second in an imbricating layer. The ovaries and tubes were seen to be normal bilaterally. The gutters were cleared of clot and debris. A final inspection of the hysterotomy revealed good hemostasis. The rectus muscles were allowed to reapproximate naturally. The fascia was then reapproximated with 1 Vicryl in a running nonlocked manner. The fascia was examined and found to be free of defect following closure. The subcutaneous tissue was copiously irrigated and reapproximated with 0-chromic, then the skin edges were closed with 4-0 monocryl in a subcuticular fashion. A dermabond dressing was applied. The hammonds was found to be draining clear yellow urine at completion of the procedure. The patient was still able to be administered Duramorph via the existing epidural catheter, and thus is not expected to require a post-op narcotic [place]. I attest to the content of the Intraoperative Record and any orders documented therein. Any exceptions are noted below. I attest to the content of the Intraoperative Record and any orders documented therein. Any exceptions are noted below. OB Procedure Charges 32957
[2021-10-12] MEDS ORDERED: DIPHTHERIA/TETANUS/PERTUSSIS 0.5 ML SYR/VIAL IM ONE (01:00)
[2021-10-12] MEDS ORDERED: HYDROCORTISONE ACETATE 25 MG SUPP PR PRN (01:00)
[2021-10-12] MEDS ORDERED: BENZOCAINE 20% AER SPR 82.5 GM CAN EXT PRN (01:00)
[2021-10-12] MEDS ORDERED: MAGNESIUM HYDROXIDE SUSP 30 ML UDC PO PRN (01:00)
[2021-10-12] MEDS ORDERED: ONDANSETRON INJ 2 MG/ML 2 ML VIAL IV PRN (01:00)
[2021-10-12] MEDS ORDERED: OXYTOCIN 30 UNITS in LACTATED RINGER'S 1,000 ML IV SCH (01:00)
--- NOTE | 2021-10-12 06:51 | Anesthesiology Progress Note ---
Date of Service October 12, 2021 Anesthesia Post Procedure Vital Signs Vital Signs: Temp Pulse Pulse Resp BP BP Pulse Ox 10/12/21 05:05 99.0 F 76 18 100/78 97 10/12/21 04:05 99.0 F 72 18 104/77 98 10/12/21 03:35 99.3 F 84 18 105/69 98 10/12/21 03:05 98.8 F 74 18 106/66 96 10/12/21 03:03 78 119/56 L 10/12/21 03:02 78 96 10/12/21 03:01 72 93 10/12/21 03:00 98.8 F 18 97 10/12/21 02:57 71 96 10/12/21 02:52 73 105/52 L 98 10/12/21 02:51 73 84 L 10/12/21 02:47 75 96 10/12/21 02:42 72 132/57 L 97 10/12/21 02:37 77 98 10/12/21 02:32 69 119/56 L 98 10/12/21 02:27 71 99 10/12/21 02:24 98.8 F 16 99 10/12/21 02:22 71 98 10/12/21 02:21 80 118/56 L 10/12/21 02:17 69 98 10/12/21 02:15 98.8 F 18 97 10/12/21 02:12 72 98 10/12/21 02:11 74 130/59 L 10/12/21 02:07 80 96 10/12/21 02:02 81 98 10/12/21 02:01 79 124/57 L 10/12/21 01:57 75 98 10/12/21 01:52 73 96 10/12/21 01:51 77 121/56 L 10/12/21 01:41 63 117/58 L 10/12/21 01:31 88 108/54 L 10/12/21 01:21 96 H 98/53 L 10/12/21 01:12 75 107/54 L 10/12/21 01:01 85 89/44 L 10/12/21 00:58 94 H 112/53 L 10/12/21 00:50 96 H 81/46 L 10/12/21 00:49 90 78/39 L 10/12/21 00:48 97 H 74/38 L 05 00:47 97 H 72/33 L 0522 00:46 96 H 84/40 L 05 00:45 93 H 94 0522 23:21 106 H 99 0522 23:16 91 H 99 0522 23:13 90 117/59 L 0522 23:11 84 98 05 23:06 82 98 05 23:01 87 99 05 22:56 79 130/54 L 99 0522 22:51 71 99 0522 22:46 65 98 0522 22:42 63 126/62 0522 22:41 66 126/65 98 0522 22:39 77 124/63 0522 22:37 65 117/60 05 22:36 64 99 05 22:33 67 120/58 L 10/11/21 22:31 66 98 05 22:27 65 115/55 L 05 22:26 69 98 05 22:21 73 99 0522 22:16 66 99 0522 22:11 79 110/59 L 99 05 22:06 65 99 05 22:01 80 99 0522 21:56 73 140/59 L 100 0522 21:51 71 99 0522 21:46 72 98 0522 21:42 69 114/56 L 22 21:41 73 99 0522 21:36 75 99 052322 21:31 109 H 100 0522 21:27 77 129/59 L 052322 21:26 87 99 052322 21:21 66 99 052322 21:16 67 99 052322 21:14 65 110/54 L 0522 21:11 72 99 052322 21:06 71 99 052322 21:01 76 100 052322 20:57 65 129/66 052322 20:56 66 99 052322 20:51 83 99 05/23/22 20:50 99.1 F 16 05 20:46 79 99 0522 20:42 63 123/59 L 05 20:41 65 98 05 20:36 63 98 05 20:31 73 98 0522 20:26 65 126/64 98 05 20:21 68 98 05 20:16 73 99 05 20:11 72 122/60 97 05 20:06 71 98 05 20:01 75 98 05 19:56 68 128/61 97 05 19:51 64 98 05 19:46 64 97 05 19:42 66 123/63 05 19:41 73 98 05 19:36 76 99 05 19:31 79 129/69 98 05 19:26 68 98 05 19:21 68 99 05 19:16 66 131/64 99 05 19:11 70 137/74 100 05 19:06 78 98 05 19:01 60 99 05 18:56 70 128/60 98 05 18:51 74 98 05 18:46 66 20 98 05 18:42 62 132/65 05 18:41 66 98 05 18:36 67 100 05 18:31 73 20 99 05 18:27 74 125/71 05 18:26 69 99 05 18:21 65 99 05 18:16 65 18 100 05 18:11 63 112/55 L 98 05 18:06 63 98 05 18:04 18 10/11/21 18:01 72 99 05 17:56 69 130/70 98 05 17:51 66 98 05 17:48 18 05 17:46 68 99 05 17:44 98.6 F 05 17:42 69 141/77 H 05/22 17:41 69 99 10/11/21 17:36 75 99 10/11/21 17:32 18 10/11/21 17:31 68 98 10/11/21 17:27 65 132/75 10/11/21 17:26 67 98 10/11/21 17:21 65 98 10/11/21 17:16 63 18 98 10/11/21 17:12 62 125/63 10/11/21 17:11 65 98 10/11/21 17:06 69 99 10/11/21 17:02 20 10/11/21 17:01 62 99 10/11/21 16:58 71 108/91 10/11/21 16:56 64 99 10/11/21 16:51 65 98 10/11/21 16:46 64 18 99 10/11/21 16:43 56 L 105/54 L 10/11/21 16:41 62 98 10/11/21 16:36 62 99 10/11/21 16:31 58 L 18 98 10/11/21 16:26 62 105/54 L 98 10/11/21 16:21 60 98 10/11/21 16:16 62 20 98 10/11/21 16:11 60 108/56 L 98 10/11/21 16:06 62 98 10/11/21 16:01 70 20 98 10/11/21 15:57 71 127/57 L 10/11/21 15:56 72 100 10/11/21 15:51 68 98 10/11/21 15:46 64 18 96 10/11/21 15:42 61 122/67 10/11/21 15:41 62 98 10/11/21 15:36 71 98 10/11/21 15:31 70 18 99 10/11/21 15:27 63 121/58 L 10/11/21 15:26 64 98 10/11/21 15:21 62 98 10/11/21 15:16 65 20 122/57 L 99 10/11/21 15:11 66 98 10/11/21 15:09 63 123/59 L 10/11/21 15:07 64 124/59 L 10/11/21 15:06 67 98 10/11/21 15:05 68 120/58 L 10/11/21 15:03 69 120/59 L 10/11/21 15:02 18 10/11/21 15:01 68 121/66 98 10/11/21 15:00 65 124/75 10/11/21 14:57 79 132/63 10/11/21 14:56 72 99 10/11/21 14:55 64 124/60 10/11/21 14:53 73 123/63 10/11/21 14:52 18 10/11/21 14:51 71 117/65 99 10/11/21 14:49 65 120/78 10/11/21 14:46 67 99 10/11/21 14:45 64 141/63 H 10/11/21 14:41 70 100 10/11/21 14:36 78 100 10/11/21 14:31 75 100 10/11/21 14:30 98.4 F 20 10/11/21 14:26 79 100 10/11/21 14:21 69 100 10/11/21 14:16 71 100 10/11/21 14:03 71 133/70 10/11/21 13:04 70 132/71 10/11/21 12:05 59 L 97/46 L 10/11/21 11:30 98.4 F 18 10/11/21 11:11 57 L 118/62 10/11/21 10:04 60 127/67 10/11/21 09:03 71 112/63 10/11/21 08:15 98.4 F 20 10/11/21 08:05 92 H 119/71 Pain Intensity Abdomen: Pain Intensity: 4 Transfer of Care Handoff Completed per policy Notes Mental Status: alert / awake / arousable and participated in evaluation Patient Amnestic to Procedure: Yes Nausea / Vomiting: adequately controlled Pain: adequately controlled Airway Patency, RR, SpO2: stable & adequate BP & HR: stable & adequate Hydration State: stable & adequate Neuraxial Anesthesia: was administered and sensory block is resolving Anesthetic Complications: no major complications apparent and Pt Satisfied with anesthetic care
--- NOTE | 2021-10-12 06:51 | Anesthesia Procedure Note ---
Date of Service October 12, 2021 Anesthesia Post Epidural Note Vital Signs Vital Signs: Temp Pulse Resp BP Pulse Ox 99.0 F 76 18 100/78 97 10/12/21 05:05 10/12/21 05:05 10/12/21 05:05 10/12/21 05:05 10/12/21 05:05 Pain Intensity Abdomen: Pain Intensity: 4 Notes Mental Status: alert / awake / arousable and participated in evaluation Nausea / Vomiting: adequately controlled Pain: adequately controlled Airway Patency, RR, SpO2: stable & adequate BP & HR: stable & adequate Hydration State: stable & adequate Neuraxial Anesthesia: was administered and sensory block is resolving Anesthetic Complications: no major complications apparent and Pt Satisfied with anesthetic care Epidural: Removed without complications and With tip intact
--- NOTE | 2021-10-12 07:35 | Obstetrical Progress Note ---
Date of Service October 12, 2021 Assessment & Plan (1) Delivery by section: section overnight due to FTP in labor, with 9lb 10oz infant female. Patient required GETA conversion due to high anxiety and c/o pain during procedure. Counseled this morning on several issues. It is OK to eat, including solid food, prior to passing gas. She does need to wait the proscribed time for duramorph to wear down before we can expect her to be able to ambulate safely. the first few days of an 's life involves very small amounts of colostrum or milk, with frequent feeding attempts by the baby to stimulate milk to come in. Attempted to adjust expectations, and relieve some of mom's fear and frustration surrounding whether the baby was getting enough, while offering solutions to help her get the rest she says she is desperate for. Bottle feeding to supplement may be helpful, and ALEXANDER was doing this during our visit this morning; baby was seen to fall asleep after that. Discussed the itching and flushing side effects of duramorph and reassurance provided that these will wane soon, while PUPPS typically clears quickly after delivery. If skin irritation from the surgical prep is occurring, benadryl is available and will often help, as does washing the skin during the first shower. Discussed timeline for ambulation and shower later today. Discussed pain management and the typical need for narcotics in the early days after a , and the value of staying "ahead" of her pain. Patient does also have borderline urine output the last few hours, so her hammonds remains for now and a 500cc bolus is being given along with encouraging PO. Patient has a known history of baseline anxiety and may be at higher than average risk for anxiety and depression; will observe for concerning signs, consider short term outpatient f/u. Subjective Passing Gas:: No Diet Tolerance:: clear liquids Lochia:: Small Feeding Type:: breast feeding Still in bed, SCD's on, no ambulation and hammonds in place. First thing she mentions is that the baby has not let her sleep, wanting to feed often, and she is really in need of rest. States she was told by nursing she could not eat until she passed gas which she has not. Lochia small. Frustrated because she wants to breastfeed but is anxious about baby not getting enough milk, as baby cries often even shortly after feeding attempts. Also anxious about itching which she believes is the return of her PUPPS rash, caused by the room feeling warm. Pain not an issue currently; she states she is planning to decline percocet as she does not want to take medicine if possible She wants to shower; upset to hear she needs to stay off her feet due to duramorph and wanted to confirm with me that there really are still many hours to wait before she can ambulate, as the nurses told her. Physical Exam Constitutional WD/WN, vitals as above Eyes PERRL, conjunctivae normal, anicteric sclerae Neck normal visual inspection Respiratory normal respiratory effort and able to speak in complete sentences; no respiratory distress and no labored breathing Cardiovascular Rate/Rhythm: regular rate and regular rhythm Extremities: + edema (small, equal bilaterally LE, SCD's in place. Edema in pannus decreased.) Chest (Breasts) Chest: normal inspection of chest Additional Comments: Was attempting to feed right before I entered; breasts exposed, appear normal. FOB begins to bottle feed the infant while I examine mom. Gastrointestinal (Abdomen) Inspection/Auscultation: abdomen normal to inspection Soft, postgravid. Incision c/d/i with dermabond. Psychiatric A+Ox3, euthymic affect Genitourinary OB Exam Abdomen: + fundal height Fundus: + firm and + relation to umbilicus (fundus just below umbilicus); not tender Results & Data ([place]) Vital Signs (Past 12 Hours) Vital Signs Temp Pulse Pulse Resp BP BP Pulse Ox 10/12/21 05:05 99.0 F 76 18 100/78 97 10/12/21 04:05 99.0 F 72 18 104/77 98 10/12/21 03:35 99.3 F 84 18 105/69 98 10/12/21 03:05 98.8 F 74 18 106/66 96 10/12/21 03:03 78 119/56 L 10/12/21 03:02 78 96 10/12/21 03:01 72 93 10/12/21 03:00 98.8 F 18 97 10/12/21 02:57 71 96 10/12/21 02:52 73 105/52 L 98 10/12/21 02:51 73 84 L 10/12/21 02:47 75 96 10/12/21 02:42 72 132/57 L 97 10/12/21 02:37 77 98 10/12/21 02:32 69 119/56 L 98 10/12/21 02:27 71 99 10/12/21 02:24 98.8 F 16 99 10/12/21 02:22 71 98 10/12/21 02:21 80 118/56 L 10/12/21 02:17 69 98 10/12/21 02:15 98.8 F 18 97 10/12/21 02:12 72 98 10/12/21 02:11 74 130/59 L 10/12/21 02:07 80 96 10/12/21 02:02 81 98 10/12/21 02:01 79 124/57 L 10/12/21 01:57 75 98 10/12/21 01:52 73 96 10/12/21 01:51 77 121/56 L 10/12/21 01:41 63 117/58 L 10/12/21 01:31 88 108/54 L 10/12/21 01:21 96 H 98/53 L 10/12/21 01:12 75 107/54 L 10/12/21 01:01 85 89/44 L 10/12/21 00:58 94 H 112/53 L 10/12/21 00:50 96 H 81/46 L 10/12/21 00:49 90 78/39 L 10/12/21 00:48 97 H 74/38 L 10/12/21 00:47 97 H 72/33 L 10/12/21 00:46 96 H 84/40 L 10/12/21 00:45 93 H 94 10/11/21 23:21 106 H 99 10/11/21 23:16 91 H 99 10/11/21 23:13 90 117/59 L 10/11/21 23:11 84 98 10/11/21 23:06 82 98 10/11/21 23:01 87 99 10/11/21 22:56 79 130/54 L 99 10/11/21 22:51 71 99 10/11/21 22:46 65 98 10/11/21 22:42 63 126/62 10/11/21 22:41 66 126/65 98 10/11/21 22:39 77 124/63 0522 22:37 65 117/60 0522 22:36 64 99 0522 22:33 67 120/58 L 10/11/21 22:31 66 98 05 22:27 65 115/55 L 0522 22:26 69 98 0522 22:21 73 99 0522 22:16 66 99 0522 22:11 79 110/59 L 99 0522 22:06 65 99 0522 22:01 80 99 0522 21:56 73 140/59 L 100 0522 21:51 71 99 0522 21:46 72 98 0522 21:42 69 114/56 L 0522 21:41 73 99 0522 21:36 75 99 05 21:31 109 H 100 05 21:27 77 129/59 L 10/11/21 21:26 87 99 05 21:21 66 99 0522 21:16 67 99 0522 21:14 65 110/54 L 05 21:11 72 99 05 21:06 71 99 05 21:01 76 100 0522 20:57 65 129/66 0522 20:56 66 99 0522 20:51 83 99 05/22 20:50 99.1 F 16 05 20:46 79 99 0522 20:42 63 123/59 L 0522 20:41 65 98 0523/22 20:36 63 98 05/22 20:31 73 98 0523/22 20:26 65 126/64 98 0523/22 20:21 68 98 0523/22 20:16 73 99 0523/22 20:11 72 122/60 97 0523/22 20:06 71 98 05/22 20:01 75 98 0523/22 19:56 68 128/61 97 0523/22 19:51 64 98 0523/22 19:46 64 97 0523/22 19:42 66 123/63 0523/22 19:41 73 98 10/11/21 19:36 76 99 10/11/21 19:31 79 129/69 98 10/11/21 19:26 68 98
[2021-10-12] MEDS ORDERED: SODIUM CHLORIDE 0.9% 1000ML 500 ML IV ONE (07:56)
[2021-10-12] MEDS: PRENATAL VITAMIN 1 TAB PO SCH (09:28)
[2021-10-12] MEDS: FERROUS SULFATE 325 MG TAB PO SCH (09:28)
[2021-10-12] MEDS: SIMETHICONE 80 MG CHEW PO SCH ×3 (09:28→20:23)
[2021-10-12] MEDS: LACTATED RINGER'S 1,000 ML IV SCH ×2 (10:25)
[2021-10-12] MEDS ORDERED: diphenhydrAMINE Capsule 25 MG CAP PO PRN (18:26)
[2021-10-12] MEDS ORDERED: MEPERIDINE HCL 50 MG/ML CARP IV PRN (18:26)
[2021-10-12] MEDS ORDERED: PROMETHAZINE HCL 25 MG in SODIUM CHLORIDE 0.9% 50 ML IV PRN (18:26)
[2021-10-12] MEDS: oxyCODONE/ACETAMINOPHEN 5mg/325mg TAB PO PRN ×2 (18:27→22:46)
[2021-10-12] MEDS: IBUPROFEN 600 MG TAB PO PRN ×2 (18:27→22:45)
[2021-10-13] MEDS: oxyCODONE/ACETAMINOPHEN 5mg/325mg TAB PO PRN ×4 (04:55→21:56)
[2021-10-13] MEDS: IBUPROFEN 600 MG TAB PO PRN ×5 (04:55→21:58)
--- NOTE | 2021-10-13 06:04 | Obstetrical Progress Note ---
Date of Service <Benigno Lema MD - Last Filed: 10/13/21 07:09> October 13, 2021 Assessment & Plan <Benigno Lema MD - Last Filed: 10/13/21 07:09> (1) delivery delivered: 31 yo now POD1 from primary LTCS at 39w5d for poor labor progression and macrosomia -Continue routine care -Anxiety appears to be stable at present -Vitals reviewed- HDS, afebrile -Blood type A-, GBS-, Rubella immune -Encourage ambulation -Encourage -Pain control with ibuprofen, oxycodone PRN -F/u in 6 weeks with OB <Lolis Birch MD, FACOG - Last Filed: 10/13/21 07:13> (1) delivery delivered: 31 yo now POD1 from primary LTCS at 39w5d for poor labor progression and macrosomia -Continue routine care -Anxiety appears to be stable at present -Vitals reviewed- HDS, afebrile -Blood type A-, GBS-, Rubella immune--> had rhogam -Encourage ambulation -Encourage -Pain control with ibuprofen, oxycodone PRN -F/u in 6 weeks with OB Subjective <Benigno Lema MD - Last Filed: 10/13/21 07:09> Ambulation: ambulating normally Voiding: no voiding problems Passing Gas:: Yes Diet Tolerance:: regular diet Lochia:: Small Feeding Type:: bottle feeding Current Pain Level(1-10): 2 Pt doing well overall, no acute complaints or distress. Pain well controlled with medication. Describes as a "process" but is pumping well. Review of Systems Denies fever/chills. Denies dyspnea, cough. Denies chest pain. Denies breast pain or discharge. Denies dysuria. Denies headache. Denies back pain. Physical Exam <Benigno Lema MD - Last Filed: 10/13/21 07:09> General: Alert, oriented, no acute distress Cardiac: Regular rate and rhythm, normal S1, S2. No murmurs noted. Respiratory: Clear to auscultation b/l with good air flow entry, symmetric chest rise and fall. No wheezes or crackles. No increased work of breathing or accessory muscle use. Abdomen: Soft, nontender, nondistended. Fundus firm and palpable at 2 cm below umbilicus. Surgical incision clean, dry and intact without erythema, warmth or drainage. No guarding or rebound. Skin: No rashes or lesions Extremities: Warm, dry and well-perfused with capillary refill <2s b/l. No lower extremity edema, erythema or swelling. Negative Vincent's sign b/l. Results & Data ([facility]) <eBnigno Lema MD - Last Filed: 10/13/21 07:09> Vital Signs (Past 12 Hours) Vital Signs Temp Pulse Resp BP Pulse Ox 10/13/21 00:00 37.2 C 92 H 18 113/72 99 10/12/21 20:00 37.2 C 93 H 18 121/73 99 <Lolis Birch MD, FACOG - Last Filed: 10/13/21 07:13> Co-Signing Physician Notes Resident Physician Supervision Note: I was present with Dr. Lema during the history and exam. I discussed the case with the resident and agree with the findings and plan as documented in the note. Any exceptions or clarifications are listed here: stable routine care. seems to be coping well this am, understanding that takes work, seems to have positive outlook. eating, voiding, ambulating well. enc to use SCDs when in bed. good pain control. had rhogam. Documented By: Lolis Birch MD, FACOG Resident Activity Tracking <Benigno Lema MD - Last Filed: 10/13/21 07:09> Resident Involvement: Resident Care Provided Care Provided: OB Delivery
[2021-10-13 07:05] LABS: Hematocrit (blood only) 21.9 % (37-47); Hemoglobin 6.9 g/dL (12.0-16.0); Mean Corpuscular Hemoglobin 26.8 pg (25-34); Mean Corpuscular Hgb Conc 31.5 g/dL (32-36); Mean Corpuscular Volume 85.2 fL (80-100); Mean Platelet Volume 10.2 fL (7.4-10.4); Platelet Count 145 K/uL (130-400); RDW Coefficient of Variation 14.8 % (11.5-14.5); RDW Standard Deviation 45.6 fL (36.4-46.3); Red Blood Count 2.57 M/uL (4.2-5.4); White Blood Count 9.32 K/uL (4.8-10.8)
[2021-10-13 07:19] LABS: Basophils # (auto) 0.02 K/uL (0-0.2); Basophils % (auto) 0.2 %; Eosinophils # (auto) 0.15 K/uL (0-0.5); Eosinophils % (auto) 1.6 %; Immature Granulocytes # (auto) 0.04 K/uL (0.00-0.02); Immature Granulocytes % (auto) 0.4 %; Lymphocytes # (auto) 1.99 K/uL (1.2-3.4); Lymphocytes % (auto) 21.4 %; Monocytes # (auto) 0.74 K/uL (0.11-0.59); Monocytes % (auto) 7.9 %; Neutrophils # (auto) 6.38 K/uL (1.4-6.5); Neutrophils % (auto) 68.5 %; Polychromasia 1+
--- NOTE | 2021-10-13 07:58 | Communication Note ---
Date of Service: October 13, 2021 Notified by nursing about pt hgb today. She is in room, but peds seeing baby. She is standing at bedside and states tolerating well. Will need to scholarship counselor abou t transfusion. Does have repeat labs in am. Aware of vital signs which are stable. could consider repeat value sooner than tomorrow am. will d/w maddy carty.
[2021-10-13] MEDS: SIMETHICONE 80 MG CHEW PO SCH ×4 (09:37→20:52)
[2021-10-13] MEDS: FERROUS SULFATE 325 MG TAB PO SCH (09:37)
[2021-10-13] MEDS: PRENATAL VITAMIN 1 TAB PO SCH (09:37)
[2021-10-13] MEDS: SENNA 8.6 MG TAB PO PRN (13:34)
[2021-10-13 19:05] LABS: Hematocrit (blood only) 22.4 % (37-47); Hemoglobin 7.1 g/dL (12.0-16.0)
--- NOTE | 2021-10-14 05:31 | Obstetrical Progress Note ---
Date of Service <Benigno Lema MD - Last Filed: 10/14/21 07:22> October 14, 2021 Assessment & Plan <Benigno Lema MD - Last Filed: 10/14/21 07:22> (1) delivery delivered: 31 yo now POD2 from primary LTCS at 39w5d for poor labor progression and macrosomia -Discharge to home today -Hgb 7.1 yesterday, asymptomatic -Vitals reviewed- HDS, afebrile -Script sent for Percocet on discharge -F/u in 6 weeks with OB <Nany Castro MD, FACOG - Last Filed: 10/14/21 07:29> (1) delivery delivered: Subjective <Benigno Lema MD - Last Filed: 10/14/21 07:22> Ambulation: ambulating normally Voiding: no voiding problems Passing Gas:: Yes Diet Tolerance:: regular diet Lochia:: Small Feeding Type:: bottle feeding Current Pain Level(1-10): 2 Pt doing well overall, no acute complaints or distress. Pain well controlled with medication. efforts and pumping are both improving. Denies anxiety at present. Would like to go home today. Review of Systems Denies fever/chills. Denies dyspnea, cough. Denies chest pain. Denies breast pain or discharge. Denies dysuria. Denies headache. Denies back pain. Physical Exam <Benigno Lema MD - Last Filed: 10/14/21 07:22> General: Alert, oriented, no acute distress Cardiac: Regular rate and rhythm, normal S1, S2. No murmurs noted. Respiratory: Clear to auscultation b/l with good air flow entry, symmetric chest rise and fall. No wheezes or crackles. No increased work of breathing or accessory muscle use. Abdomen: Soft, nontender, nondistended. Fundus firm and palpable at 2 cm below umbilicus. Surgical incision clean, dry and intact without erythema, warmth or d rainage. No guarding or rebound. Skin: No rashes or lesions Extremities: Warm, dry and well-perfused with capillary refill <2s b/l. No lower extremity edema, erythema or swelling. Negative Vincent's sign b/l. Results & Data ([facility]) <Benigno Lema MD - Last Filed: 10/14/21 07:22> Vital Signs (Past 12 Hours) Vital Signs Temp Pulse Resp BP Pulse Ox 10/14/21 03:40 36.8 C 86 18 110/70 99 10/13/21 20:30 36.7 C 86 18 122/79 97 <Nany Castro MD, FACOG - Last Filed: 10/14/21 07:29> Co-Signing Physician Notes Resident Physician Supervision Note: I interviewed and examined the patient. Discussed with Dr. Lema and agree with findings and plan as documented in the note. Any exceptions or clarifications are listed here: [None] Documented By: Nany Castro MD, FACOG Resident Activity Tracking <Benigno Lema MD - Last Filed: 10/14/21 07:22> Resident Involvement: Resident Care Provided Care Provided: OB Delivery
[2021-10-14] MEDS: oxyCODONE/ACETAMINOPHEN 5mg/325mg TAB PO PRN ×2 (06:26→12:22)
[2021-10-14] MEDS: IBUPROFEN 600 MG TAB PO PRN ×2 (06:27→12:22)
[2021-10-14 07:22] LABS: Hematocrit (blood only) 22.5 % (37-47); Hemoglobin 7.2 g/dL (12.0-16.0)
[2021-10-14] MEDS: PRENATAL VITAMIN 1 TAB PO SCH (08:41)
[2021-10-14] MEDS: SENNA 8.6 MG TAB PO PRN (08:42)
[2021-10-14] MEDS: SIMETHICONE 80 MG CHEW PO SCH (08:42)
[2021-10-14] MEDS: FERROUS SULFATE 325 MG TAB PO SCH (08:43)
--- NOTE | 2021-10-15 12:23 | Discharge Summary ---
Date of Service October 15, 2021 Admission HPI Per Admitting Provider 31 yo at EGA 39w5d by LMP/ultrasound, AMIRA 10/13 presenting for IOL. History gathered from patient and chart review. Pt scheduled for IOL at term for macrosomia (EFW and AC > 98%, 4427g on 10/08). Pt expressed desire to try vaginal delivery and was originally supposed to have cervical hammonds bulb placed on 10/10 evening. Shortly after her pelvic exam on the L&D floor which revealed a closed cervix, she had severe anxiety with hyperventilation and hammonds placement was subsequently deferred. Pt arrived this AM for hammonds placement. She does note several [place] contractions the night prior and reports painful contractions now- approximately every 2-3 mins. Denies any LOF, VB. Reports good FM. She does not have any acute complaints now. PNI: -PUPPP rash 07/2021 resolved with short course of steroid treatment -Yeast infection 08/2021 resolved with Monistat treatment OBHx: -Elective in 12/2019 GynHx: -ASCUS pap smear/HPV+ with negative colposcopy 05/17, previous hx of abnormal pap smears -Menstrual history- menarche at 17, cycles q28-30d -Previous history of chlamydia + gonorrhea 3 years prior (not to be discussed with patient) OB Labs: Antibody Screen NEGATIVE 07/22/21 Hemoglobin 9.3 g/dL (12.0-16.0) L 07/22/21 Hematocrit 28.3 % (37-47) L 07/22/21 Glucose 1 Hour 50 gm Load 114 mg/dl (70-130) 07/22/21 OB Optional Labs: No Data to Display Labs Reviewed: csf/sma-negative--mln cfdna-low risk--mln msafp-negative--mln Discharge Data Consultations 10/11/21 07:46 Consult Anesthesiology Stat Procedures Performed Operation Date: 10/11/21 23:30 Actual Procedures p Section in LD - Stephania Smith MD Hospital Course (1) delivery delivered: 31 yo now POD2 from primary LTCS at 39w5d for poor labor progression and macrosomia -Discharge to home today -Hgb 7.1 yesterday, asymptomatic -Vitals reviewed- HDS, afebrile -Script sent for Percocet on discharge -F/u in 6 weeks with OB Coding Level of Care Code None Diagnoses delivery delivered O82
== END 2021-10-14 14:30 | disposition home or self-care (01) | DRG 788 ==
LOC: 4S1 07:41 → 4E2 10-12 03:39
DX: O99.344 Other mental disorders complicating childbirth; Z3A.39 39 weeks gestation of pregnancy; J45.909 Unspecified asthma, uncomplicated; O62.0 Primary inadequate contractions; Z87.891 Personal history of nicotine dependence; Z91.010 Allergy to peanuts; Z86.19 Personal history of other infectious and parasitic diseases; O99.52 Diseases of the respiratory system complicating childbirth; O33.1 Maternal care for disproportion due to generally contracted pelvis; F41.9 Anxiety disorder, unspecified; Z37.0 Single live birth; O36.63X0 Maternal care for excessive fetal growth, third trimester, not applicable or unspecified; Z79.4 Long term (current) use of insulin; Z91.030 Bee allergy status

== ENCOUNTER 2023-11-30 06:15 | Inpatient (IN) ==
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
[2023-11-30] MEDS: LACTATED RINGER'S 1,000 ML IV SCH ×2 (06:00→19:50)
[~2023-11-30 06:15] MED LIST changes: -OXYC-57 PO; +SODIUM CHLORIDE 0.9% 250 ML IV PRN
[2023-11-30] MEDS ORDERED: PHENYLEPHRINE HCL 25 MG/250 ML NSS IV ONE (06:51)
[2023-11-30] MEDS ORDERED: KETOROLAC 30 MG/ML VIAL ONE (06:51)
[2023-11-30] MEDS ORDERED: fentaNYL citrate PF 100 MCG/2 ML VIAL ONE (06:51)
[2023-11-30] MEDS ORDERED: ONDANSETRON INJ 2 MG/ML 2 ML VIAL ONE (06:51)
[2023-11-30] MEDS ORDERED: OXYTOCIN 10 UNITS/ML VIAL ONE (06:51)
[2023-11-30] MEDS ORDERED: MoRPHine SULFATE PF 1 MG/ML 10 ML AMP/VIAL ONE (06:52)
[2023-11-30 06:53] LABS: Basophils # (auto) 0.04 K/uL (0.00-0.20); Basophils % (auto) 0.5 %; Eosinophils # (auto) 0.14 K/uL (0.00-0.50); Eosinophils % (auto) 1.6 %; Hematocrit (blood only) 30.5 % (37.0-47.0); Hemoglobin 10.2 g/dl (12.0-16.0); Immature Granulocytes # (auto) 0.05 K/uL (0.01-0.20); Immature Granulocytes % (auto) 0.6 %; Lymphocytes % (auto) 24.7 %; Mean Corpuscular Hemoglobin 28.4 pg (25.0-34.0); Mean Corpuscular Hgb Conc 33.4 g/dL (32.0-36.0); Mean Platelet Volume 10.8 fL (9.4-12.4); Monocytes # (auto) 0.64 K/uL (0.11-0.59); Monocytes % (auto) 7.5 %; Neutrophils # (auto) 5.54 K/uL (1.40-6.50); Neutrophils % (auto) 65.1 %; Platelet Count 179 K/uL (130-400); RDW Coefficient of Variation 12.5 % (11.5-14.5); RDW Standard Deviation 38.2 fL (36.4-46.3); Red Blood Count 3.59 M/uL (4.20-5.40); White Blood Count 8.51 K/ul (4.8-10.8)
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
[2023-11-30] MEDS ORDERED: NALOXONE HCL 1 MG in SODIUM CHLORIDE 0.9% 1,000 ML IV PRN (07:14)
[2023-11-30] MEDS ORDERED: NALOXONE HCL 0.4 MG/1 ML VIAL/CARP IV PRN (07:14)
[2023-11-30] MEDS ORDERED: ONDANSETRON INJ 2 MG/ML 2 ML VIAL IV PRN (07:14)
[2023-11-30] MEDS ORDERED: ACETAMINOPHEN 1,000 MG/100 ML VIAL IV PRN (07:14)
[2023-11-30] MEDS ORDERED: MoRPHine SULFATE PF 1 MG/ML 10 ML AMP/VIAL INT SPINAL ONE (07:14)
[2023-11-30] MEDS ORDERED: diphenhydrAMINE 50 MG/ML VIAL IV PRN (07:14)
[2023-11-30] MEDS ORDERED: NALOXONE HCL 0.08 MG in SYRINGE 1.8 ML IV PRN (07:14)
[2023-11-30] MEDS ORDERED: NALBUPHINE HCL 5 MG in SYRINGE 0 ML IV PRN (07:14)
[2023-11-30] MEDS ORDERED: ePHEDrine sulfate 50 MG/ML AMP IV PRN (07:14)
[2023-11-30] MEDS ORDERED: LACTATED RINGER'S 500 ML IV PRN (07:14)
[2023-11-30] MEDS ORDERED: PROMETHAZINE HCL 6.25 MG in SODIUM CHLORIDE 0.9% 50 ML IV PRN (07:14)
[2023-11-30] MEDS ORDERED: NO NARCOTICS OR SEDATIVES SCH (07:15)
[2023-11-30] MEDS ORDERED: DC INTRASPINAL MORPHINE SCH (07:15)
[2023-11-30] MEDS ORDERED: SODIUM CHLORIDE 0.9% 1,000 ML IV SCH (07:15)
[2023-11-30] MEDS: CITRIC ACID/SODIUM CITRATE 15 ML UDC PO SCH (07:22)
[2023-11-30] MEDS: ceFAZolin 3000MG 3,000 MG/72.5 ML BAG IV SCH (07:36)
[2023-11-30] MEDS ORDERED: CARBOPROST TROMETHAMINE 250 MCG/ML AMPUL ONE (08:09)
[2023-11-30] MEDS: CARBOPROST TROMETHAMINE 250 MCG/ML AMPUL IM ONE (08:09)
--- NOTE | 2023-11-30 08:34 | Operative Report ---
PG Post Operative Report Pre & Post Diagnosis Operation Date: 11/30/23 07:30 Pre-Op Diagnosis: intrauterine , desires repeat section Post-Op Diagnosis: same I identified the patient and participated in the time-out.: Yes Procedure Operation Date: 11/30/23 07:30 Actual Procedures p Section for living male child at 0801(Bilateral) - Silvio Lucero MD, FACOG Surgeon Silvio Lucero MD, FACOG Physical Medicine Teacher Dr. Birch Estimated Blood Loss 602 Findings Consistent with Post-Op Diagnosis Specimens Cord blood Description of Procedure Regional anesthetic had been given by anesthesia patient was prepped and draped with a leftward tilt preoperative antibiotics had been given in appropriate timing by anesthesiology. Once the prep was allowed to fully dry timeout was performed. Pickups with teeth were used to test the incision area was found to be adequate for incision as the patient did not feel sharp pain. Scalpel was used to make a Pfannenstiel incision on the lower abdomen. We then cut through the subcutaneous fat down to the level of the anterior rectus sheath fascia this was cut in the midline and then extended laterally with the curved Cerda scissors. At this stage we then placed 2 Jeremy clamps on the anterior aspect of the fascia. Using the curved Cerda's we are able to dissect the fascia superiorly away from the rectus muscles. Care was taken to maintain hemostasis. Jeremy clamps were then placed to the inferior aspect of the anterior sheath of the fascia. Fascia was then dissected away from the rectus muscles inferiorly towards the pubic bone. A Jeremy was then placed in the midline both inferiorly and superiorly. This was to allow exposure by retraction rectus muscles were in the midline with were then able to cut through the peritoneum and then enter the peritoneal cavity. Opening was enlarged to allow exposure of the peritoneal cavity both superiorly and inferiorly. Once adequate space was obtained a bladder retractor was placed to expose the lower segment Metzenbaums were used to dissect the bladder flap inferiorly away from the uterus. This was done sharply bladder retractor was then repositioned to expose the lower segment of the uterus Fresh scalpel was used to make a low transverse incision on the uterus. Uterus was then entered bluntly with the operators finger, membranes ruptured and the opening was enlarged using the operators fingers bluntly pulling superiorly and inferiorly to allow exposure. Baby was delivered by first flexion of the head elevation of the head out of the pelvis. Initially I was unsuccessful but then placed a vacuum on the baby's head and was able to deliver easily and then pressure by the speech language assistant on the maternal abdomen. Baby's head was then delivered mouth and then nares were suctioned and then using gentle traction the baby was fully delivered. Live vigorous . Fluid was clear cord clamped and cut cord gases obtained cord blood obtained baby handed to pediatrics. Placenta removed was removed with traction we ensure the entire placenta was removed with a moist lap sponge into the uterus After closure there was some bogginess and Hemabate was injected directly into the uterine muscle we took care to avoid intravascular injection Uterus was then exteriorized. IV Pitocin had been started by anesthesia tone improved there were no extensions the uterus was then closed using 0 Monocryl in a 2 layer closure the first layer closed in a running locked fashion from left to right and then a second closure from left to right in a running nonlocked fashion. At this stage hemostasis was excellent. Uterus was placed back in the peritoneal cavity with suction irrigation out and inspection of the uterus at this stage revealed excellent hemostasis Retractors were removed urine color was clear at this stage of the case we inspected the rectus muscles they were hemostatic fascia was closed with 0 Vicryl subcutaneous fat was irrigated and closed with 3-0 Vicryl skin closed with 4-0 subcuticular Monocryl I attest to the content of the Intraoperative Record and any orders documented therein. Any exceptions are noted below. OB Procedure Charges 86909
[2023-11-30] MEDS ORDERED: MAGNESIUM HYDROXIDE SUSP 30 ML UDC PO PRN (08:54)
[2023-11-30] MEDS ORDERED: SENNA 8.6 MG TAB PO PRN (08:54)
[2023-11-30] MEDS ORDERED: DIPHTHER/TETAN/PERTUS Vaccine (Tdap, Adol/Adult) 0.5mL IM ONE (08:54)
[2023-11-30] MEDS ORDERED: PROMETHAZINE HCL 25 MG in SODIUM CHLORIDE 0.9% 50 ML IV PRN (08:54)
[2023-11-30] MEDS ORDERED: HYDROCORTISONE ACETATE 25 MG SUPP PR PRN (08:54)
[2023-11-30] MEDS ORDERED: diphenhydrAMINE Capsule 25 MG CAP PO PRN (08:54)
[2023-11-30] MEDS ORDERED: BENZOCAINE 20% SPRY 85 APPLN/85 GM CAN EXT PRN (08:54)
--- NOTE | 2023-11-30 09:05 | Anesthesiology Progress Note ---
Date of Service November 30, 2023 Anesthesia Post Procedure Vital Signs Vital Signs: Temp Pulse Resp BP Pulse Ox 11/30/23 08:58 63 98 11/30/23 08:55 18 11/30/23 08:54 67 109/58 L 11/30/23 08:53 66 99 11/30/23 08:48 72 97 11/30/23 08:45 18 11/30/23 08:44 68 107/59 L 11/30/23 08:43 62 97 11/30/23 08:38 68 97 11/30/23 08:36 68 106/56 L 11/30/23 08:35 97.9 F 67 18 109/68 97 11/30/23 08:35 72 102/49 L 11/30/23 08:33 72 97 11/30/23 05:57 98.2 F 18 Transfer of Care Handoff Completed per policy Notes Mental Status: alert / awake / arousable and participated in evaluation Patient Amnestic to Procedure: No Nausea / Vomiting: adequately controlled Pain: adequately controlled Airway Patency, RR, SpO2: stable & adequate BP & HR: stable & adequate Hydration State: stable & adequate Neuraxial Anesthesia: was administered and sensory block is resolving Anesthetic Complications: no major complications apparent and Pt Satisfied with anesthetic care
[2023-11-30] MEDS: OXYTOCIN 20 UNITS/LR 1,002 ML IV SCH (10:52)
[2023-11-30] MEDS: SIMETHICONE 80 MG CHEW PO SCH (13:17)
[2023-11-30] MEDS: KETOROLAC 30 MG/ML VIAL IV PRN (13:17)
[2023-11-30] MEDS: DOCUSATE SODIUM 100 MG CAP PO SCH (22:00)
[2023-12-01] MEDS ORDERED: diphenhydrAMINE 50 MG/ML VIAL IV PRN (01:16)
[2023-12-01] MEDS ORDERED: KETOROLAC 30 MG/ML VIAL IV PRN (01:16)
[2023-12-01] MEDS ORDERED: ONDANSETRON INJ 2 MG/ML 2 ML VIAL IV PRN (01:16)
[2023-12-01] MEDS: oxyCODONE/ACETAMINOPHEN 5mg/325mg TAB PO PRN (02:05)
[2023-12-01] MEDS: IBUPROFEN 600 MG TAB PO PRN (02:07)
--- NOTE | 2023-12-01 06:14 | Obstetrical Progress Note ---
Date of Service <Uriel Culver DO - Last Filed: 12/01/23 07:18> December 01, 2023 Assessment & Plan <Uriel Culver DO - Last Filed: 12/01/23 07:18> (1) Encounter for assessment: Patient is POD 1 s/p repeat and doing well - Eating well, voiding well, ambulating well - vitals reviewed and within normal limits - pain well controlled with analgesics - OOB, ambulation, diet progression as tolerated - Blood type: A- rhogam give 28 weeks, GBS neg, rubella immune - Plan to discharge tomorrow - After discharge, 6 week follow up with OB visit type: exam and care immediately after delivery Qualified Code(s): Z39.0 - Encounter for care and examination of mother immediately after delivery <Silvio Lucero MD, FACOG - Last Filed: 12/01/23 07:30> (1) Encounter for assessment: Subjective <Uriel Culver - Last Filed: 12/01/23 07:18> 33 yo post-operative day 1 s/p repeat Ambulation: ambulating normally Voiding: no voiding problems Passing Gas:: Yes Diet Tolerance:: regular diet Lochia:: Small Feeding Type:: breast and bottle feeding Current Pain Level:2-3/10 Resting comfortably this AM in NAD. Denies MEDEIROS, CP, SOB, N/V/D, LE pain/swelling. Physical Exam <Uriel Culver DO - Last Filed: 12/01/23 07:18> General: patient resting comfortably, NAD, non-toxic in appearance, answers q uestions appropriately. Skin: warm, dry, intact HEENT: NC/AT, anicteric sclera, conjunctiva without injection, moist mucus membranes. Heart: +S1/S2, regular, no m/r/g Lungs: equal air entry bilaterally, no rales/rhonchi/wheezes Abd: +BS, soft, NT/ND, uterine fundus firm at umbilicus, caesarean incision without erythema and healing well Ext: warm, no clubbing/cyanosis or edema, Vincent's neg. Neuro: nonfocal, speech intact, no facial droop, moving all extremities. Results & Data <Uriel Culver - Last Filed: 12/01/23 07:18> Vital Signs (Past 12 Hours) Vital Signs Temp Pulse Resp BP Pulse Ox O2 Del Method 12/01/23 05:20 36.4 C L 92 H 18 117/70 98 Room Air 12/01/23 01:10 37.0 C 88 18 123/67 94 Room Air 12/01/23 01:05 18 94 12/01/23 00:10 18 93 11/30/23 23:15 18 96 11/30/23 22:00 18 98 11/30/23 21:15 18 96 11/30/23 20:01 36.5 C 82 18 122/77 97 Room Air 11/30/23 20:01 18 97 11/30/23 19:15 18 99 11/30/23 18:36 16 100 Supervising Physician <Silvio Lucero MD, FACOG - Last Filed: 12/01/23 07:30> Co-Signing Physician Notes Resident Physician Supervision Note: I was present with DrOdessa [Name of resident] during the history and exam. I discussed the case with the resident and agree with the findings and plan as documented in the note. Any exceptions or clarifications are listed here: [None] Documented By: Silvio Lucero MD, FACOG Resident Activity Tracking <Uriel Culver DO - Last Filed: 12/01/23 07:18> Resident Involvement: Resident Care Provided Care Provided: OB Delivery
[2023-12-01 06:18] LABS: Basophils # (auto) 0.04 K/uL (0.00-0.20); Basophils % (auto) 0.5 %; Eosinophils # (auto) 0.13 K/uL (0.00-0.50); Eosinophils % (auto) 1.5 %; Hematocrit (blood only) 25.4 % (37.0-47.0); Hemoglobin 8.3 g/dl (12.0-16.0); Immature Granulocytes # (auto) 0.05 K/uL (0.01-0.20); Immature Granulocytes % (auto) 0.6 %; Lymphocytes # (auto) 1.88 K/uL (1.20-3.40); Mean Corpuscular Hemoglobin 28.1 pg (25.0-34.0); Mean Corpuscular Hgb Conc 32.7 g/dL (32.0-36.0); Mean Corpuscular Volume 86.1 fL (80.0-100.0); Mean Platelet Volume 10.6 fL (9.4-12.4); Monocytes # (auto) 0.57 K/uL (0.11-0.59); Monocytes % (auto) 6.7 %; Neutrophils # (auto) 5.87 K/uL (1.40-6.50); Neutrophils % (auto) 68.7 %; Platelet Count 153 K/uL (130-400); RDW Coefficient of Variation 12.5 % (11.5-14.5); RDW Standard Deviation 38.6 fL (36.4-46.3); Red Blood Count 2.95 M/uL (4.20-5.40); White Blood Count 8.54 K/ul (4.8-10.8)
[2023-12-01] MEDS: PRENATAL VITAMIN 1 TAB PO SCH (07:20)
[2023-12-01] MEDS: FERROUS SULFATE 325 MG TAB PO SCH (07:20)
[2023-12-01] MEDS: DOCUSATE SODIUM SYRUP 100 MG/10 ML UDC PO SCH (20:05)
[2023-12-01] MEDS: bisacodyL 5 MG TABEC PO SCH (20:09)
[2023-12-02 07:03] LABS: Hematocrit (blood only) 25.4 % (37.0-47.0); Hemoglobin 8.2 g/dl (12.0-16.0)
--- NOTE | 2023-12-02 07:53 | Obstetrical Progress Note ---
Date of Service <Uriel Culver DO - Last Filed: 12/02/23 07:53> December 02, 2023 Assessment & Plan <Uriel Culver DO - Last Filed: 12/02/23 07:53> (1) Encounter for assessment: Patient is POD 2 s/p repeat and doing well - Eating well, voiding well, ambulating well - vitals reviewed and within normal limits - pain well controlled with analgesics - OOB, ambulation, diet progression as tolerated - Blood type: A- rhogam give 28 weeks, GBS neg, rubella immune - Plan to discharge today - After discharge, 6 week follow up with OB visit type: exam and care immediately after delivery Qualified Code(s): Z39.0 - Encounter for care and examination of mother immediately after delivery <Junior Taveras MD - Last Filed: 12/02/23 08:59> (1) Encounter for assessment: Subjective <Uriel Culver DO - Last Filed: 12/02/23 07:53> 33 yo post-op day 2 s/p repeat Ambulation: ambulating normally Voiding: no voiding problems Passing Gas:: Yes Diet Tolerance:: regular diet Lochia:: Small Feeding Type:: bottle feeding Current Pain Level: 2/10 Resting comfortably this AM in NAD. Denies MEDEIROS, CP, SOB, N/V/D, LE pain/swelling. Physical Exam <Uriel Culver DO - Last Filed: 12/02/23 07:53> General: patient resting comfortably, NAD, non-toxic in appearance, answers questions appropriately. Skin: warm, dry, intact HEENT: NC/AT, anicteric sclera, conjunctiva without injection, moist mucus membranes. Heart: +S1/S2, regular, no m/r/g Lungs: equal air entry bilaterally, no rales/rhonchi/wheezes Abd: +BS, soft, NT/ND, uterine fundus firm at umbilicus, caesarean incision without erythema and healing well Ext: warm, no clubbing/cyanosis or edema, Vincent's neg. Neuro: nonfocal, speech intact, no facial droop, moving all extremities. Results & Data <Uriel Culver DO - Last Filed: 12/02/23 07:53> Vital Signs (Past 12 Hours) Vital Signs Temp Pulse Resp BP Pulse Ox O2 Del Method 12/01/23 22:58 36.9 C 80 20 111/74 97 Room Air Supervising Physician <Junior Taveras MD - Last Filed: 12/02/23 08:59> Co-Signing Physician Notes Patient seen with resident and agree with the above findings and plan. Stable for discharge if preferred Resident Activity Tracking <Uriel Culver DO - Last Filed: 12/02/23 07:53> Resident Involvement: Resident Care Provided Care Provided: OB Delivery
[2023-12-02] MEDS ORDERED: bisacodyL 10 MG SUPP PR PRN (08:29)
--- NOTE | 2023-12-04 07:56 | Coding Query ---
CODING QUERY To promote full compliance with coding requirements relating to patient care, provider participation is requested in all cases of public relations professional uncertainty. Please assist us with the question(s) below: Coding Question(s): Please list weeks of gestation for proper coding. Physician's Response(s): 39 Thank you Jody Agusto Principal Diagnosis: "that condition established after study, to be chiefly responsible for occasioning the admission of the patient to the hospital for care." Co-Existing Principal Diagnosis: "when two or more diagnoses equally meet the criteria for principal diagnosis as determined by the circumstances of admission, diagnostic work up, and/or therapy provided, and the Alphabetic Index, Tabular List, or another coding guideline does not provide sequencing direction, any one of the diagnoses may be sequenced first." "When the physician has documented what appears to be a current diagnosis in the body of the record, but has not included the diagnosis in the final diagnostic statement, the physician should be asked whether the diagnosis should be added." (Source [facility] 2 QTR90. p3-4) CHERELLE
== END 2023-12-02 11:30 | disposition home or self-care (01) | DRG 788 ==
LOC: 4S1 06:15 → EDSTATUS 07:30 → 4E2 10:58

== ENCOUNTER 2024-03-18 10:42 | Observation (INO) ==
--- NOTE | 2024-03-18 11:51 | XRay Report ---
XR chest 1V portable HISTORY: 33 years-old Female Chest pain, nonspecific COMPARISON: CT chest 02/23/2024 TECHNIQUE: AP view the chest FINDINGS: Heart size is normal. No pneumothorax, pleural effusion or airspace consolidation. Bones appear gross ly intact. IMPRESSION: No acute process. ACT 112: Negative or not required by law. The above report was generated using voice recognition software. It may contain grammatical, syntax o r spelling errors. Electronically signed by: Junior Rojas M.D. 03/18/2024 11:50 AM
[2024-03-18 11:53] LABS: Basophils # (auto) 0.04 K/uL (0.00-0.20); Basophils % (auto) 0.7 %; Eosinophils # (auto) 0.23 K/uL (0.00-0.50); Eosinophils % (auto) 3.8 %; Hemoglobin 12.2 g/dl (12.0-16.0); Immature Granulocytes # (auto) 0.01 K/uL (0.01-0.20); Immature Granulocytes % (auto) 0.2 %; Lymphocytes # (auto) 1.05 K/uL (1.20-3.40); Lymphocytes % (auto) 17.2 %; Mean Corpuscular Hemoglobin 27.9 pg (25.0-34.0); Mean Corpuscular Volume 84.7 fL (80.0-100.0); Mean Platelet Volume 10.1 fL (9.4-12.4); Monocytes # (auto) 0.38 K/uL (0.11-0.59); Monocytes % (auto) 6.2 %; Neutrophils % (auto) 71.9 %; Platelet Count 259 K/uL (130-400); RDW Coefficient of Variation 13.3 % (11.5-14.5); RDW Standard Deviation 41.3 fL (36.4-46.3); Red Blood Count 4.37 M/uL (4.20-5.40); White Blood Count 6.11 K/ul (4.8-10.8)
[2024-03-18 11:56] LABS: Pregnancy Test, Serum Negative (Negative)
[2024-03-18 12:03] LABS: D Dimer 450 ug/L FEU (0-500); Prothrombin Time 10.9 Seconds (9.0-12.0); Troponin I High Sensitivity 2.8 pg/ml (0-14)
[2024-03-18] MEDS: ALBUT/IPRATROP 3MG/0.5MG NEB 3 ML VIAL NEB STA (12:04)
[2024-03-18 12:10] LABS: Albumin Level 4.6 gm/dl (3.4-5.0); Bilirubin,Total 1.3 mg/dl (0.2-1.0); Calcium 9.8 mg/dl (8.6-10.3); Magnesium 1.7 mg/dl (1.7-2.4); Potassium 3.7 mmol/L (3.5-5.1)
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
[2024-03-18 12:16] LABS: Albumin Globulin Ratio 1.4 (0.9-2); BUN Creatinine Ratio 9.9 (10-20); Creatinine Clr Calc Pharmacy 141.9 ml/min; Globulin 3.2 gm/dl (2.5-4.0); Total Protein 7.8 gm/dl (6.0-8.3)
[2024-03-18 12:31] LABS: Appearance Urine Clear (Clear); Bilirubin Urine Negative (Negative); Blood Urine Negative (Negative); Color Urine Yellow; Glucose Urine UA Negative (Negative); Ketones Urine Negative (Negative); Leukocyte Esterase Urine Negative (Negative); Nitrite Urine Negative (Negative); Protein Urine Negative (Negative); Specific Gravity Urine 1.006 (1.000-1.030); Urobilinogen Urine Negative (Negative); pH Urine 7.5 (4.5-7.5)
[2024-03-18 12:51] LABS: Adenovirus PCR Not Detected (NotDetected); Bordetella parapertussis PCR Not Detected (NotDetected); Bordetella pertussis PCR Not Detected (NotDetected); Chlamydia pneumoniae PCR Not Detected (NotDetected); Coronavirus 229E PCR Not Detected (NotDetected); Coronavirus CoV-2 (COVID19)PCR Not Detected (NotDetected); Coronavirus HKU1 PCR Not Detected (NotDetected); Coronavirus NL63 PCR Not Detected (NotDetected); Coronavirus OC43PCR Not Detected (NotDetected); Human Metapneumovirus PCR Not Detected (NotDetected); Influenza A PCR Not Detected (NotDetected); Influenza B PCR Not Detected (NotDetected); Mycoplasma pneumoniae PCR Not Detected (NotDetected); Parainfluenza Virus 1 PCR Not Detected (NotDetected); Parainfluenza Virus 2 PCR Not Detected (NotDetected); Parainfluenza Virus 3 PCR Not Detected (NotDetected); Parainfluenza Virus 4 PCR Not Detected (NotDetected); Respiratory Syncytial VirusPCR Not Detected (NotDetected); Rhinovirus/Enterovirus PCR DETECTED (NotDetected)
[2024-03-18] MEDS: OPTIRAY 320 100ml IV ONE (12:51)
--- NOTE | 2024-03-18 12:56 | Electrocardiogram Report ---
Test Reason : Blood Pressure : */* mmHG Vent. Rate : 84 BPM Atrial Rate : 84 BPM P-R Int : 140 ms QRS Dur : 98 ms QT Int : 350 ms P-R-T Axes : 68 42 9 degrees QTcB Int : 413 ms Normal sinus rhythm with sinus arrhythmia Normal ECG When compared with ECG of 23-Feb-2024 20:06, No significant change was found Confirmed by Brad Luna ([id number]) on 03/18/2024 12:55:32 PM Referred By: Confirmed By: Brad Luna
--- NOTE | 2024-03-18 13:18 | CT Scan Report ---
CT chest diagnostic w con CLINICAL HISTORY: shortness of breath; chest pain; fever TECHNIQUE: Multidetector row helical CT of the chest was performed with intravenous contrast. Coronal and sagittal reformations were obtained. Automated dose lowering techniques and/or adjustment accord ing to patient size were utilized for this exam. CT DOSE: 2310.67 mGy.cm Comparison: Comparison is made to chest CT 02/23/2024 FINDINGS: Lungs and pleura: There are a very few foci of groundglass opacity and tree-in-bud nodularity most pr ominent in the right lower lung. Bronchial wall thickening is seen. Heart and pericardium: Heart size is normal. No pericardial effusion. Vessels: Unremarkable. Mediastinum and jessica: Subcentimeter lymph nodes are seen. Chest wall and lower neck: Unremarkable. Abdomen: For findings below the diaphragm, please refer to CT of the abdomen dated the same. Bones: Degenerative changes in the thoracic spine. IMPRESSION: Findings may represent mild infectious/inflammatory pneumonitis with reactive mediastinal lymph nodes . ACT 112: Negative or not required by law. Electronically signed by: Martín Sheth M.D. 03/18/2024 1:16 PM
--- NOTE | 2024-03-18 13:24 | CT Scan Report ---
CT OF THE ABDOMEN AND PELVIS WITH CONTRAST CLINICAL HISTORY: transaminitis; fever COMPARISON STUDY: Pelvic ultrasound April 17, 2023. TECHNIQUE: Following IV administration of 94 mL of Optiray, axial images of the abdomen and pelvis we re obtained from the lung bases to the proximal femurs. Images were reviewed in the axial, sagittal, and coronal planes. IV contrast was administered without complication. Automated exposure control wa s utilized for the study. A dose lowering technique was utilized adhering to the principles of ALARA . FINDINGS: Tiny centrilobular/tree-in-bud nodules within the right lower lobe are present. Please note that the chest CT will be reported separately. No pneumatosis, free air or portal venous gas is pres ent. There is no biliary or pancreatic ductal dilatation. Hepatic steatosis is noted. The liver is mi ldly enlarged. There is borderline splenomegaly. There are 2 splenules. Adrenal glands and pancreas a re unremarkable. Water attenuation right renal lesions measure up to 4.9 cm. These represent cysts. S ubcentimeter left renal lesion is too small to characterize but likely benign. There are no urinary c alculi. Caliber and wall thickness of small and large bowel are normal. The appendix is normal. There is a tiny fat-containing umbilical hernia. Evidence for previous suspected section. There a re no enlarged lymph nodes. There are no fluid collections. IMPRESSION: 1. No acute process within the abdomen or pelvis. 2. Normal appendix. No bowel obstruction. No bowel wall thickening. 3. Hepatic steatosis and mild hepatomegaly. ACT 112: Negative or not required by law. Electronically signed by: Александр Fulton M.D. 03/18/2024 1:22 PM
[2024-03-18] MEDS: methylPREDNISolone 125 MG/2 ML VIAL IV STA (15:32)
--- NOTE | 2024-03-18 16:39 | Ultrasound Report ---
US gallbladder CLINICAL HISTORY: transaminitis TECHNIQUE: Multiple real-time sonographic images of the right upper quadrant were obtained. Comparison: Comparison is made to CT abdomen pelvis 03/10/2024 FINDINGS: The liver is diffusely echogenic in appearance with poor ultrasound penetration, with normal contour, which is consistent with fatty infiltration. No focal mass lesions are seen. No intrahepatic duct al dilatation is seen. Linear hyperechoic foci with posterior shadowing are identified layering depe ndently within the gallbladder, which are consistent with gallstones. The gallbladder wall is not thi ckened. There is no pericholecystic fluid present. A sonographic Trevizo's sign was not elicited by t supplies packer. The common duct measures 0.5 cm in diameter at the level of the hepatic artery. The visualized portions of the pancreas appear normal. The right kidney shows normal echogenicity, cortical thickness and renal contour. The right kidney sh ows no evidence of hydronephrosis. A cyst measures 4.5 x 3.5 cm. No ascites or free fluid is seen in Holguin's pouch. IMPRESSION: Hepatic steatosis. ACT 112: Negative or not required by law. Electronically signed by: Martín Sheth M.D. 03/18/2024 4:37 PM
[2024-03-18] MEDS: ONDANSETRON INJ 2 MG/ML 2 ML VIAL IV STA (16:59)
[2024-03-18] MEDS: ACETAMINOPHEN 1,000 MG/100 ML VIAL IV STA (16:59)
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
[2024-03-18] MEDS: PANTOprazole 40 MG/10 ML SYR IV ONE (17:16)
[2024-03-18] MEDS ORDERED: AcetylCYSTEINE IV 21 HR REGIMEN (>40KG) IV STA (17:51)
[2024-03-18] MEDS ORDERED: STAT IV/IM STA (18:01)
[2024-03-18] MEDS: SODIUM CHLORIDE 0.9% 1,000 ML IV ONE (18:42)
[2024-03-18 19:07] LABS: Albumin Globulin Ratio 1.4 (0.9-2); Albumin Level 4.5 gm/dl (3.4-5.0); BUN Creatinine Ratio 8.5 (10-20); Calcium 9.4 mg/dl (8.6-10.3); Creatinine Clr Calc Pharmacy 141.9 ml/min; Globulin 3.2 gm/dl (2.5-4.0); Potassium 3.7 mmol/L (3.5-5.1); Total Protein 7.7 gm/dl (6.0-8.3)
[2024-03-18] MEDS ORDERED: ONDANSETRON INJ 2 MG/ML 2 ML VIAL IV PRN (20:35)
[2024-03-18] MEDS ORDERED: POLYETHYLENE (MIRALAX) 17 GM PACK PO PRN (20:35)
[2024-03-18] MEDS: AcetylCYSTEINE 5,000 MG in DEXTROSE 5% 500 ML IV ONE (20:49)
[2024-03-18] MEDS: AcetylCYSTEINE 15,000 MG in DEXTROSE 5% 200 ML IV ONE (20:52)
[2024-03-18] MEDS: ALBUT/IPRATROP 3MG/0.5MG NEB 3 ML VIAL NEB SCH (21:24)
[2024-03-18 23:39] LABS: Albumin Globulin Ratio 1.3 (0.9-2); Albumin Level 4.3 gm/dl (3.4-5.0); BUN Creatinine Ratio 9.3 (10-20); Calcium 8.9 mg/dl (8.6-10.3); Globulin 3.2 gm/dl (2.5-4.0); Potassium 3.9 mmol/L (3.5-5.1); Total Protein 7.5 gm/dl (6.0-8.3)
[2024-03-19] MEDS: AcetylCYSTEINE 10,000 MG in DEXTROSE 5% 1,000 ML IV ONE (02:36)
[2024-03-19 02:39] LABS: Basophils # (auto) 0.02 K/uL (0.00-0.20); Basophils % (auto) 0.4 %; Hematocrit (blood only) 34.9 % (37.0-47.0); Hemoglobin 11.7 g/dl (12.0-16.0); Immature Granulocytes # (auto) 0.02 K/uL (0.01-0.20); Immature Granulocytes % (auto) 0.4 %; Lymphocytes # (auto) 0.62 K/uL (1.20-3.40); Lymphocytes % (auto) 11.3 %; Mean Corpuscular Hemoglobin 28.1 pg (25.0-34.0); Mean Corpuscular Hgb Conc 33.5 g/dL (32.0-36.0); Mean Corpuscular Volume 83.9 fL (80.0-100.0); Mean Platelet Volume 9.9 fL (9.4-12.4); Monocytes # (auto) 0.27 K/uL (0.11-0.59); Monocytes % (auto) 4.9 %; Neutrophils # (auto) 4.58 K/uL (1.40-6.50); Platelet Count 237 K/uL (130-400); RDW Coefficient of Variation 13.4 % (11.5-14.5); RDW Standard Deviation 41.1 fL (36.4-46.3); Red Blood Count 4.16 M/uL (4.20-5.40); White Blood Count 5.51 K/ul (4.8-10.8)
[2024-03-19 02:50] LABS: BUN Creatinine Ratio 11.9 (10-20); Potassium 3.9 mmol/L (3.5-5.1)
[2024-03-19 02:51] LABS: BUN Creatinine Ratio 11.3 (10-20); Calcium 8.9 mg/dl (8.6-10.3); Creatinine Clr Calc Pharmacy 141.5 ml/min
[2024-03-19 03:00] LABS: Prothrombin Time 11.2 Seconds (9.0-12.0)
[2024-03-19 03:11] LABS: Albumin Globulin Ratio 1.3 (0.9-2); Albumin Globulin Ratio 1.4 (0.9-2); Albumin Level 4.3 gm/dl (3.4-5.0); Bilirubin,Total 0.6 mg/dl (0.2-1.0); Globulin 3.1 gm/dl (2.5-4.0); Globulin 3.2 gm/dl (2.5-4.0); Total Protein 7.4 gm/dl (6.0-8.3); Total Protein 7.5 gm/dl (6.0-8.3)
[2024-03-19 09:23] LABS: Albumin Globulin Ratio 1.4 (0.9-2); Albumin Level 4.1 gm/dl (3.4-5.0); BUN Creatinine Ratio 9.7 (10-20); Bilirubin,Total 0.4 mg/dl (0.2-1.0); Calcium 8.8 mg/dl (8.6-10.3); Globulin 2.9 gm/dl (2.5-4.0); Potassium 3.4 mmol/L (3.5-5.1)
[2024-03-19] MEDS: PANTOprazole 40 MG TAB PO SCH (10:50)
[2024-03-19] MEDS: POTASSIUM CHLORIDE CRTAB 20 MEQ TABCR PO ONE (10:50)
[2024-03-19 10:52] LABS: Potassium 3.1 mmol/L (3.5-5.1)
[2024-03-19 11:05] LABS: Albumin Globulin Ratio 1.5 (0.9-2); Albumin Level 4.2 gm/dl (3.4-5.0); Bilirubin,Total 0.4 mg/dl (0.2-1.0); Globulin 2.8 gm/dl (2.5-4.0)
[2024-03-19 11:09] VITALS: O2SAT 96
--- NOTE | 2024-03-19 11:13 | XCELERA ---
[id number]
[2024-03-19] MEDS: IBUPROFEN 200 MG TAB PO PRN (12:19)
[2024-03-19 15:08] LABS: Hep B Surface Ag with confirm Negative (Negative)
[2024-03-19 15:15] LABS: Hep C Ab Rflx HepCQuant RNA Negative (Negative)
[2024-03-19 16:23] VITALS: BP 134/90; PULSE 75; RESP 18; TEMP 98.2
[2024-03-19 17:02] LABS: BUN Creatinine Ratio 8.3 (10-20); Calcium 9.1 mg/dl (8.6-10.3); Creatinine Clr Calc Pharmacy 139.5 ml/min; Potassium 3.5 mmol/L (3.5-5.1)
[2024-03-19 17:18] LABS: Albumin Globulin Ratio 1.5 (0.9-2); Albumin Level 4.2 gm/dl (3.4-5.0); Bilirubin,Total 0.4 mg/dl (0.2-1.0); Globulin 2.8 gm/dl (2.5-4.0)
[2024-03-19 17:31] LABS: Prothrombin Time 10.6 Seconds (9.0-12.0)
--- NOTE | 2024-03-19 17:52 | Discharge Summary ---
Discharge Summary Date of Service March 19, 2024 Principal Dx & Hospital Course #1 = Principal Diagnosis (1) Transaminitis: Acute hepatitis - suspect combination of subacute acetaminophen toxicity and alcohol during her wedding this past weekend. Viral hepatitis also possible. Hep A and Hep B IgM still pending. HCV antibody was negative. Other viral causes are possible. Lyme screen was negative and anaplasmosis smear negative (DNA pending). If nonresolving consider autoimmune hepatitis. Underlying steatosis on liver ultrasound. Steatosis and mild hepatomegaly on CT abdomen/pelvis. May have underlying ALD or MAFLD Tylenol level was low but detectable, had recieved dose of tylenol on arrival to ED however. Repeat level was negative. Discussed with poison control and recommended 21h IV acetylcysteine protocol which we completed. INR remained 1.0 through 4pm today. Mild bilirubin elevation normalized. AST peaked at 1630 yesterday evening, currently 476. ALT peaked at 1354 overnight and currently 1029. -counseled to avoid acetaminophen and alcohol -counseled on appropriate doses of acetaminophen in future -has primary care follow up scheduled 03/22 to check on symptoms and labs (2) Acute dyspnea: Ryder has had waxing and waning respiratory symptoms over the last month Early in February had respiratory symptoms and series of high fevers, treated initially with amoxicillin then improved after azithromycin. This admission recurrent fever, dyspnea, cough and found to have rhinovirus/enterovirus infection. Chest CT: ground glass opacity in right lower lung. Bronchial wall thickening. Mild infectious/inflammatory pneumonitis with reactive mediastinal lymph nodes. Resp Biofire: rhino/enterovirus. Had one fever afternoon of admission to 39.3, no further fevers last 24h. No WBC elevation, procal negative, lactate 1.1 on admission. Blood cultures: pending but low risk for bacteremia IV Solumedrol given in the ED, nebulizers Dyspnea improved, mild asthma exacerbation and pneumonitis related to rhinovirus infection -continue albuterol/budesonide inhaler at home (3) Chest pain: Sharp in nature, awakes her from sleep. Did not recur since admission - trop negative - EKG: SR, no ST changes - Echo ordered for concerns for pericarditis - normal - my suspicion for PE is low, not hypoxic and not tachycardic and there are alternative explanations for her dyspnea (see above) Seems gastrointestinal in origin, at risk for alcohol related gastritis/esophagitis Omeprazole for 1-2 weeks Admission HPI Per Admitting Provider Ryder is a 33F with a past medical hx of asthma and recently PP (3 month) and . She presented to the ER after worsening of symptoms that she has been dealing with for the last month - cold/congestions symptoms. She is now developed episodes of chest pain over the last few days, the first episode was - it woke her up from sleep, lasted for about an hour, she describes as a sharp pain that radiated to the back. Did not improve with tums, slight improvement with tylenol. She had two episodes yesterday that also woke her up from sleep, lasting 15 minutes. Another episode this morning while she was getting her daughter ready for day care. Took Tylenol. She did feel like her respiratory symptoms improved after the course of azithromycin but did not resolve completely. Her infant reacted poorly when she was on amoxicillin. No concerns for mastitis. She has been taking tylenol, ibuprofen and delysm for her congestion symptoms. Avoiding Mucinex as she is breast feeding. Earlier in the month - states she was taking max dose Tylenol and ibuprofen around the clock otherwise she would pop fevers. This continued for about 10 days. Did have fevers (101) last night and chills. + cough with mucous production. Occasional alcohol consumption 1-2 glasses of wine on the weekend. Family reports recent stressors - move from [place], wedding, of child, continuous illness, daughter had to get stitches recently Code Status: Full Code ER course: Albuterol Neb Solumedrol 60mg IV Protonix 40mg IV Zofran tylenol IV 1000mg Discharge Exam PHYSICAL EXAMINATION Last 24h vital signs reviewed, see documentation in flowsheet General: comfortable appearing, no distress HEENT: Normocephalic, atraumatic, pupils round and equal, sclerae anicteric, no conjunctival injection, moist mucus membranes Lungs: Normal respiratory effort. Clear to auscultation bilaterally. No RRW Heart: Regular rate and rhythm, no murmurs. No JVD Abdomen: Soft, nontender, nondistended. Bowel sounds present. Extremities: Warm, dry, well-perfused. No extremity edema. Neuro: Alert and oriented x 4, face symmetric, moves 4 extremities well Psych: Normal affect and behavior Discharge Plan Discharge Items Patient Disposition: Home - Self-Care Reason For Visit: TRANSAMINITIS, CHEST PAIN Discharge Diagnosis: acute hepatitis - likely combination of acetaminophen and alcohol toxicity rhinovirus infection chest pain, likely gastrointestinal Activity: Resume your previous activity Non-emergency contact: Primary Care Provider Call non-emergency contact if: you have any medication questions, your symptoms worsen and your temperature is above 101.5 Follow-up/Referrals: Hany Larsen, [Primary Care Provider] - 03/22/24 9:20 am (Hospital follow up appointment) Diet: Regular Addtl Attending Provider Instructions: Avoid acetaminophen - I would advise against taking acetaminophen and avoid alcohol for at least a month, then use in moderation Generally, max of 3000 mg of acetaminophen per 24h is safe in the short term (days) watermelon inspector (week or more), or if you are drinking any significant amount of alcohol, you should limit acetaminophen to max of 2000 mg per 24h You were treated with acetylcysteine - the antidote for acetaminophen toxicity. Fortunately your liver is improving. Follow up with Dr. Larsen as scheduled on Monday and get repeat liver tests. I also checked for hepatits A and B infection - these tests are pending. Hepatitis C screen was negative. You will want to "pump and dump" for 48h after completing the acetylcysteine to make sure it is out of your breast milk It seems that the infection you had several weeks ago resolved after antibiotics, currently you have a rhinovirus infection (cold). This can cause some fevers for the next few days. Its ok to take 400 mg of ibuprofen to make you feel better from fever. Ideally, only take this once or twice a day for maximum of 2 weeks to avoid gastrointestinal irritation or kidney injury. Your Echo (heart ultrasound) was normal. Its highly likely that the chest pain was gastrointestinal. Alcohol usually causes irritation/inflamation of the esophagus and stomach. You can take omeprazole once or twice a day for 1-2 weeks to help this resolve. Pending Studies at Discharge: Yes Stand-Alone Forms: [employer], Smoking Cessation Medications and DC Order Prescriptions: New omeprazole 20 mg tablet,delayed release (DR/EC) 20 mg PO BID Qty: 14 0RF Rx Instructions: buy over the counter Continued epinephrine 0.3 mg/0.3 mL auto-injector 0.3 mg IM Q15M PRN (Reason: anaphylaxis) Qty: 2 0RF Rx Instructions: for 2 doses Airsupra 90-80 mcg/actuation HFA aerosol inhaler 2 inh inhalation BID PRN (Reason: shortness of breath) Qty: 5.9 0RF multivitamin Tablet 1 tab PO DAILY Vitamin C 1 tab PO DIRECTED Rx Instructions: OTC Discontinued prednisone 20 mg tablet 20 mg PO DAILY Qty: 18 0RF Rx Instructions: hasnt started yet Take PO w/ food. 3 daily x3d, then 2 daily x3d, then 1 daily x3d. Discharge Orders: Discharge Order (Routine); Ordered 03/19/24 Ordered By: Mehnaz Colmenares Admission Data Admit Date/Time: 03/18/24 18:01 Attending Provider: Mehnaz Colmenares Admit Provider: Naldo Zaragoza Primary Care Provider: Hany Larsen Other Providers: Naldo Zaragoza Hospital Stay Data Consultations 03/18/24 16:27 ED Decision to Admit Stat Diagnostic Imagining Performed 03/18/24 12:36 CT Abd and Pelvis [CT abd pelvis IV con only] Stat CT chest with contrast [CT chest diagnostic w con] Stat 03/18/24 15:03 US gallbladder Stat Pending Results Patient Have Any Pending Studies at Discharge: Yes Discharge Instructions Given to Patient (Per Discharging Provider) Avoid acetaminophen - I would advise against taking acetaminophen and avoid alcohol for at least a month, then use in moderation Generally, max of 3000 mg of acetaminophen per 24h is safe in the short term (days) USP (week or more), or if you are drinking any significant amount of alcohol, you should limit acetaminophen to max of 2000 mg per 24h You were treated with acetylcysteine - the antidote for acetaminophen toxicity. Fortunately your liver is improving. Follow up with Dr. Larsen as scheduled on Monday and get repeat liver tests. I also checked for hepatits A and B infection - these tests are pending. Hepatitis C screen was negative. You will want to "pump and dump" for 48h after completing the acetylcysteine to make sure it is out of your breast milk It seems that the infection you had several weeks ago resolved after antibiotics, currently you have a rhinovirus infection (cold). This can cause some fevers for the next few days. Its ok to take 400 mg of ibuprofen to make you feel better from fever. Ideally, only take this once or twice a day for maximum of 2 weeks to avoid gastrointestinal irritation or kidney injury. Your Echo (heart ultrasound) was normal. Its highly likely that the chest pain was gastrointestinal. Alcohol usually causes irritation/inflamation of the esophagus and stomach. You can take omeprazole once or twice a day for 1-2 weeks to help this resolve. Total Time Total Time Spent Total Time Spent (In Minutes): I personally spent: 40 minutes today on clinical care activities including: reviewing chart notes and vital signs reviewing labs examining and counseling the patient counseling the patient's family writing orders writing prescriptions, discharge instructions documentation Coding Level of Care Code 09109 INP/OBS DISCH >30 MIN Diagnoses Transaminitis R74.01 Acute dyspnea R06.00 Chest pain R07.9
[2024-03-20 16:17] LABS: Hepatitis A Antibody IgM NON-REACTIVE (NON-REACTIVE); Hepatitis B Core Antibody IgM NON-REACTIVE (NON-REACTIVE)
== END 2024-03-19 19:45 | disposition home or self-care (01) ==
LOC: 4W 10:42 → ED 10:42 → SUATTDRO 18:01 → 4W 22:31